=== PATIENT | female | born 1990 | race Caucasian/White ===

== ENCOUNTER → 2017-05-16 | Outpatient (CLI) | payer OTHER | END | disposition home or self-care (01) | LOC: LABWHC1 16:58 | PROVIDERS: ATTEND Family Medicine | DX: E66.3 Overweight (principal) | CPT/HCPCS: 36415; 84443 ==

== ENCOUNTER → 2017-12-12 | Outpatient (CLI) | payer OTHER ==
[2017-12-12 16:09] LABS: HCT 38.7 % (34.0-46.0); HGB 12.6 gm/dL (11.4-16.0); MCH 30.7 pg (25.0-35.0); MCHC 32.5 g/dL (31.0-37.0); MCV 94.5 fL (80.0-100.0); Mean Platelet Volume 7.9; Platelet Count 236 k/uL (150-450); RBC 4.09 m/uL (3.80-5.40); RDW 13.7 % (11.5-15.5); WBC 10.2 k/uL (3.8-10.6)
== END | disposition home or self-care (01) ==
LOC: LABWHC1 14:28
PROVIDERS: ATTEND Obstetrics & Gynecology
DX: Z34.82 Encounter for supervision of other normal pregnancy, second trimester (principal); Z3A.00 Weeks of gestation of pregnancy not specified
CPT/HCPCS: 36415; 82950; 85027

== ENCOUNTER → 2017-12-19 | Outpatient (CLI) | payer OTHER ==
[2017-12-19 12:50] LABS: Glucose 3 Hour, Gest 75 mg/dL
== END | disposition home or self-care (01) ==
LOC: LABWHC1 08:09
PROVIDERS: ATTEND Obstetrics & Gynecology
DX: O99.810 Abnormal glucose complicating pregnancy (principal); Z3A.00 Weeks of gestation of pregnancy not specified
CPT/HCPCS: 36415; 82951; 82952

== ENCOUNTER 2018-03-15 20:06 | Outpatient (CLI) | payer OTHER ==
[2018-03-15 21:30] VITALS: BP 131/80; PULSE 105; RESP 18; TEMP 97.2
--- NOTE | 2018-03-16 11:38 | P.MSEPDOC ---
Presenting Problems - Arrival Data Date of Arrival on Unit: 03/15/18 Time of Arrival on Unit: 20:06 Mode of Transport: Ambulatory - Complaint OB-Reason for Admission/Chief Complaint: Pain Comment: back pain and heachache Medical History - Information : 2 Para: 0 Term: 0 : 0 Abortions: Spontaneous or Elective: 0 Number of Living Children: 0 - Gestational Age Gestational Age by AURELIO (wks/days): 38 Weeks and 6 Days - History Complications: GBS+ Review of Systems - Review of Systems Constitutional: No problems Breast: No problems ENT: No problems Cardiovascular: No problems Respiratory: No problems Gastrointestinal: No problems Genitourinary: No problems Musculoskeletal: No problems Neurological: No problems Skin: No problems Vital Signs - Temperature Temperature: 97.2 F Temperature Source: Temporal Artery Scan - Pulse Right Brachial Pulse Rate: 105 Pulse Assessment Method: Automatic Cuff - Respirations Respiratory Rate: 18 Oxygen Delivery Method: Room Air - Blood Pressure Right Arm Blood Pressure: 131/80 Blood Pressure Mean: 97 Blood Pressure Source: Automatic Cuff Medical Screen Scoring (Pre) - Cervical Exam Dilation: 1-3 cm = 1 Membranes: Intact - Uterine Contractions Frequency: > 5 minutes apart = 1 Duration: N/A Intensity: N/A - Maternal Vital Signs Maternal Temperature: N/A Maternal Blood Pressure: N/A Signs of Preeclampsia: N/A Maternal Respirations: N/A - Pain Assessment Pain Location and Character: Back Pain Scale Used: Numeric (1 - 10) Pain Intensity: 8 Pain Description: *Acute Pain Radiation Location: none Pain Duration: 1 Pain Duration Units: Days Pain Behavior: Vocalization Pain Aggravating Factors: Walking - Maternal Trauma Maternal Trauma: N/A - Assessment Baseline FHR: 150 Heart Rate - NICHD Category: Category I (Normal) = 0 NST: Reactive Position: N/A - Total Score Total Score (Pre): 2 - Level of Risk Level of Risk: Low (0-5) Physician Notification (Pre) - Physician Notified Physician Notified Date: 03/15/18 Physician Notified Time: 20:47 Physician/Practitioner Notifed:: Dr. Banerjee Spoke With: Dr. Banerjee New Order Received: Yes Disposition - Disposition OB Disposition: Triage, Discharge to home, Written follow up instructions reviewed Discharge Date: 03/15/18 Discharge Time: 21:00 I agree with the RN Medical Screening Exam: Yes Risk & Benefit of care provided described in d/c instruction: Yes Diagnosis: HEADACHE
== END 2018-03-15 21:00 | disposition home or self-care (01) ==
LOC: FBPOP 20:06
PROVIDERS: ATTEND Obstetrics & Gynecology
DX: O26.893 Other specified pregnancy related conditions, third trimester (principal); R51 Headache; M54.9 Dorsalgia, unspecified; Z3A.38 38 weeks gestation of pregnancy
CPT/HCPCS: 59025; 99213

== ENCOUNTER 2018-03-23 14:06 | Inpatient (IN) | payer OTHER ==
[2018-04-02] MEDS ORDERED: TERBUTALINE 1 MG/ML VIAL SQ PRN (06:30)
[2018-04-02] MEDS ORDERED: CARBOPROST TROMETHAMINE 250 MCG/ML 1 ML AMP IM PRN (06:30)
[2018-04-02] MEDS ORDERED: LIDOCAINE 1% (PF) 10 MG/ML (30 ML SDV) SQ PRN (06:30)
[2018-04-02] MEDS ORDERED: OXYTOCIN 10 UNIT/ML 1 ML VIAL IM PRN (06:30)
[2018-04-02] MEDS ORDERED: AMPICILLIN 2,000 MG in SODIUM CHLORIDE 0.9% 100 ML IVPB STA (06:30)
[2018-04-02] MEDS ORDERED: OXYTOCIN 20 UNITS/1000 ML NS 1,000 ML IV SCH ×2 (06:30→21:15)
[2018-04-02] MEDS ORDERED: METHYLERGONOVINE 0.2 MG/ML 1 ML AMP IM PRN (06:30)
[2018-04-02 06:40] LABS: Basophils % (A) 0 %; Eosinophils # (A) 0.3 k/uL (0-0.7); Eosinophils % (A) 3 %; HCT 41.6 % (34.0-46.0); HGB 14.2 gm/dL (11.4-16.0); Lymphocytes # (A) 1.5 k/uL (1.0-4.8); Lymphocytes % (A) 18 %; MCHC 34.1 g/dL (31.0-37.0); MCV 88.1 fL (80.0-100.0); Mean Platelet Volume 8.8; Monocytes # (A) 0.4 k/uL (0-1.0); Monocytes % (A) 4 %; Neutrophils # (A) 6.4 k/uL (1.3-7.7); Neutrophils % (A) 73 %; Platelet Count 191 k/uL (150-450); RBC 4.72 m/uL (3.80-5.40); RDW 14.2 % (11.5-15.5); WBC 8.7 k/uL (3.8-10.6)
[2018-04-02] MEDS: LACTATED RINGERS 1,000 ML IV SCH ×3 (06:40→14:43)
[2018-04-02 07:29] VITALS: BMI 39.1
--- NOTE | 2018-04-02 08:13 | P.HPOB ---
History of Present Illness H&P Date: 04/02/18 Chief Complaint: Induction of Labor 28-year-old presents at 41 weeks and 3 days for induction of labor. Her cervix is 2-3 cm dilated, 60% effaced, and -2 station. She is not charline. heart tones 130-135 with moderate variability and reactive. Review of Systems All systems: negative Constitutional: Denies chills, Denies fever Eyes: denies blurred vision, denies pain Ears, nose, mouth and throat: Denies headache, Denies sore throat Cardiovascular: Denies chest pain, Denies shortness of breath Respiratory: Denies cough Gastrointestinal: Denies abdominal pain, Denies diarrhea, Denies nausea, Denies vomiting Genitourinary: Denies dysuria, Denies hematuria Musculoskeletal: Denies myalgias Integumentary: Denies pruritus, Denies rash Neurological: Denies numbness, Denies weakness Psychiatric: Denies anxiety, Denies depression Endocrine: Denies fatigue, Denies weight change Past Medical History Additional Past Medical History / Comment(s): mitrovalve regurgitation. Obstetric history: First was elective , this is her second and she's had care with me since 14 weeks. Blood type is B+ , antibodies negative, rubella immune, RPR nonreactive, hepatitis B negative, HIV nonreactive, toxoplasmosis negative. Abnormal one-hour, normal three-hour GTT. Normal anatomy ultrasound, the baby did have an echogenic intracardiac focus but when she went [facility] that was gone. GBS positive History of Any Multi-Drug Resistant Organisms: None Reported Additional Past Surgical History / Comment(s): defibrilator insertion and removal, during highschool Past Anesthesia/Blood Transfusion Reactions: No Reported Reaction Past Psychological History: No Psychological Hx Reported Smoking Status: Never smoker Past Drug Use History: None Reported - Past Family History Father Family Medical History: No Reported History Medications and Allergies Home Medications Medication Instructions Recorded Confirmed Type Pnv No.95/Ferrous Fum/Folic AC 1 each PO DAILY 03/15/18 04/02/18 History [ Multivitamin Tablet] Allergies Allergy/AdvReac Type Severity Reaction Status Date / Time adhesive tape Allergy Rash/Hives Verified 04/02/18 06:29 fluticasone [From Flonase] Allergy Swelling Verified 04/02/18 06:29 Latex, Natural Rubber Allergy Swelling Verified 04/02/18 06:29 Exam Osteopathic Statement: *. No significant issues noted on an osteopathic structural exam other than those noted in the History and Physical/Consult. - Vital Signs Vital signs: Vital Signs Temp Pulse Resp BP Pulse Ox 04/02/18 06:29 96.9 F L 89 16 101/67 99 Intake and Output 04/01/18 04/02/18 04/02/18 22:59 06:59 14:59 Other: Weight 97.069 kg Heart: Regular rate and rhythm Lungs: Clear to auscultation bilaterally Abdomen: Soft, nontender Extremities: Negative Homans sign Results Result Diagrams: 04/02/18 06:33 Assessment and Plan (1) Normal labor Current Visit: Yes Status: Acute Code(s): O80 - ENCOUNTER FOR FULL-TERM UNCOMPLICATED DELIVERY; Z37.9 - OUTCOME OF DELIVERY, UNSPECIFIED SNOMED Code(s ): 56710999 Plan: 1. Admit to family place 2. Induction of labor with amniotomy and Pitocin 3. Anticipate normal vaginal delivery
[2018-04-02] MEDS: AMPICILLIN 1,000 MG in SODIUM CHLORIDE 0.9% 50 ML IVPB SCH ×3 (11:23→19:42)
[2018-04-02] MEDS ORDERED: fentaNYL (PF) 50 MCG/ML 5 ML AMP ONE (14:10)
[2018-04-02] MEDS ORDERED: BUPIVACAINE (PF) 0.25% 30 ML VIAL ONE (14:10)
[2018-04-02] MEDS ORDERED: SODIUM CHLORIDE 0.9% 100 ML BAG ONE (14:10)
[2018-04-02] MEDS ORDERED: NALOXONE 0.4 MG/ML 1 ML VIAL IV PRN (14:59)
[2018-04-02] MEDS ORDERED: ROPIVACAINE 300 MG, fentaNYL (PF) 1,250 MCG in SODIUM CHLORIDE 0.9% 165 ML EPIDURAL PRN (14:59)
[2018-04-02] MEDS ORDERED: BUPIVACAINE (PF) 0.5% 12.5 ML, fentaNYL (PF) 200 MCG in SODIUM CHLORIDE 0.9% 83.5 ML EPIDURAL ONE (15:11)
[2018-04-02] MEDS ORDERED: ROPIVACAINE 100 MG, fentaNYL (PF) 200 MCG in SODIUM CHLORIDE 0.9% 76 ML EPIDURAL ONE (15:22)
[2018-04-02] MEDS ORDERED: BENZOCAINE/MENTHOL SPRAY 1 GM/SPRAY AEROSOL TOPICAL PRN (21:11)
[2018-04-02] MEDS ORDERED: ZOLPIDEM 5 MG TAB PO PRN (21:11)
[2018-04-02] MEDS ORDERED: WITCH HAZEL 1 EACH MED..PAD TOPICAL PRN (21:11)
[2018-04-02] MEDS ORDERED: ACETAMINOPHEN TAB 325 MG TAB PO PRN (21:11)
[2018-04-02] MEDS ORDERED: diphenhydrAMINE 25 MG CAP PO PRN (21:11)
[2018-04-02] MEDS ORDERED: LANOLIN CREAM 5 GM TUBE TOPICAL PRN (21:11)
[2018-04-02] MEDS ORDERED: diphenhydrAMINE 50 MG CAP PO PRN (21:11)
[2018-04-02] MEDS ORDERED: diphenhydrAMINE 50 MG/ML 1 ML VIAL IVP PRN ×2 (21:11)
[2018-04-02] MEDS ORDERED: SIMETHICONE 80 MG CHEWABLE PO PRN (21:11)
[2018-04-02] MEDS ORDERED: IBUPROFEN 600 MG TAB PO PRN (21:11)
--- NOTE | 2018-04-02 21:15 | P.PROBDLV ---
Vaginal Delivery Note - . Vaginal Delivery Note: 28-year-old presents at 41 weeks and 3 days for induction of labor. Her cervix is 2-3 cm dilated, 70% effaced, -2 station. She's not charline. heart tones 130-135 with moderate variability and reactive. Pitocin was started. Amniotomy was performed at 7:49 AM and clear fluid noted. She progressed slowly throughout the day and when she was very uncomfortable at 4-1/ 2 cm she did get an epidural. Her cervix was completely dilated at 1945. She pushed, and delivered a viable male over intact perineum under epidural anesthesia at 2053. Head delivered OA, anterior shoulder which was the left shoulder delivered gentle downward guidance followed by posterior shoulder and rest of body. Nose and mouth bulb suctioned, cord clamped and cut, infant placed on mother's abdomen. Apgars 8, 9, weight 6 lbs. 13 oz. Placenta delivered spontaneously, intact with three-vessel cord at 2057. Vagina, cervix , and perineum were inspected. First-degree midline laceration was repaired with 3-0 Vicryl. Estimated blood loss 200 mL. Mother and baby in stable condition.
[2018-04-03 16:40] VITALS: BP 117/76; PULSE 95; RESP 18; TEMP 98.4
[2018-04-03] MEDS: SENNOSIDES-DOCUSATE SODIUM 1 EACH TAB PO SCH ×2 (20:38→22:12)
--- NOTE | 2018-04-09 07:36 | P.DS ---
Providers Date of admission: 04/02/18 06:23 Expected date of discharge: 04/03/18 Attending physician: Samantha Banerjee Primary care physician: Celso Posey - Discharge Diagnosis(es) (1) Normal labor Status: Resolved (2) Normal vaginal delivery Status: Acute Hospital Course: Patient presented for induction of labor. She underwent a normal vaginal delivery. Her course was uncomplicated. She'll be discharged home day #1 in stable condition to follow-up with me in 6 weeks. Patient Condition at Discharge: Stable Plan - Discharge Summary New Discharge Prescriptions: No Action Pnv No.95/Ferrous Fum/Folic AC [ Multivitamin Tablet] 1 each PO DAILY Discharge Medication List Pnv No.95/Ferrous Fum/Folic AC [ Multivitamin Tablet] 1 each PO DAILY [History] Follow up Appointment(s)/Referral(s): Samantha Banerjee DO [Doctor of Osteopathic Medicine] - 6 Weeks Discharge Disposition: HOME SELF-CARE
== END 2018-04-03 21:50 | disposition home or self-care (01) | DRG 775 ==
LOC: 4FBP 04-02 06:23
PROVIDERS: ADMIT Obstetrics & Gynecology; ATTEND Obstetrics & Gynecology
PROC: 00HU33Z Insertion of Infusion Device into Spinal Canal, Percutaneous Approach (ICD-10-PCS; principal; 2018-04-02)
PROC: 10907ZC Drainage of Amniotic Fluid, Therapeutic from Products of Conception, Via Natural or Artificial Opening (ICD-10-PCS; principal; 2018-04-02)
PROC: 3E0R3NZ Introduction of Analgesics, Hypnotics, Sedatives into Spinal Canal, Percutaneous Approach (ICD-10-PCS; principal; 2018-04-02)
PROC: 0HQ9XZZ Repair Perineum Skin, External Approach (ICD-10-PCS; principal; 2018-04-02)
PROC: 10E0XZZ Delivery of Products of Conception, External Approach (ICD-10-PCS; principal; 2018-04-02)
DX: O48.0 Post-term pregnancy (principal); Z37.0 Single live birth; O99.824 Streptococcus B carrier state complicating childbirth; O70.0 First degree perineal laceration during delivery; Z3A.41 41 weeks gestation of pregnancy; Z88.8 Allergy status to other drugs, medicaments and biological substances; Z91.040 Latex allergy status
CPT/HCPCS: 85025; 88307

== ENCOUNTER 2018-10-06 17:28 | Emergency (ER) | payer OTHER ==
[2018-10-06 17:58] VITALS: BP 135/87; PULSE 120; RESP 18; TEMP 98.3
[2018-10-06] MEDS ORDERED: LIDOCAINE 1% INJ 10MG/ML (20 ML MDV) SQ ONE (19:22)
--- NOTE | 2018-10-06 19:23 | ED ---
Wound/Laceration HPI - General Chief Complaint: Wound/Laceration Stated Complaint: hand lac Source: patient Mode of arrival: ambulatory Limitations: no limitations - History of Present Illness Initial Comments: 28 year old female with no significant past medical history presenting today for chief complaint of left hand laceration x 30 minutes prior to arrival. Patient is 5 weeks . Patient states that she was cutting a squash when she missed the knife cut into the palmar aspect of her left hand. It cut just proximal to the base the left index finger. Patient is unsure how deep the knife went. Patient states her tetanus up-to-date. Patient presents today for evaluation and laceration repair. Patient denies any numbness, tingling, loss sensation, coolness or pallor of the extremity or digit. Patient denies any limitations in range of motion of the left index finger. Upon arrival patient is well-appearing, no active bleeding. Patient states she not take any medication prior to arrival. Patient did cleanse area, and apply pressure prior to arrival. Remainder of ROS negative, patient denies any recent fever, chills, shortness of breath, chest pain, back pain, abdominal pain, nausea or vomiting, numbness or tingling, dysuria or hematuria, constipation or diarrhea, headaches or visual changes, or any other complaints. - Related Data Home Medications Medication Instructions Recorded Confirmed Pnv No.95/Ferrous Fum/Folic AC 1 each PO DAILY 18 04/02/18 [ Multivitamin Tablet] Allergies Allergy/AdvReac Type Severity Reaction Status Date / Time adhesive tape Allergy Rash/Hives Verified 10/06/18 17:55 fluticasone [From Flonase] Allergy Swelling Verified 10/06/18 17:55 Latex, Natural Rubber Allergy Swelling Verified 10/06/18 17:55 Review of Systems ROS Statement: Those systems with pertinent positive or pertinent negative responses have been documented in the HPI. ROS Other: All systems not noted in ROS Statement are negative. Constitutional: Denies: fever, chills ENT: Denies: ear pain, throat pain Respiratory: Denies: cough, dyspnea, wheezes, hemoptysis Cardiovascular: Denies: chest pain, palpitations Endocrine: Denies: fatigue Gastrointestinal: Denies: abdominal pain, vomiting, diarrhea, constipation Genitourinary: Denies: urgency, dysuria Musculoskeletal: Denies: back pain Skin: Denies: rash, lesions Past Medical History Additional Past Medical History / Comment(s): mitrovalve regurgitation. Obstetric history: First was elective , this is her second and she's had care with me since 14 weeks. Blood type is B+ , antibodies negative, rubella immune, RPR nonreactive, hepatitis B negative, HIV nonreactive, toxoplasmosis negative. Abnormal one-hour, normal three-hour GTT. Normal anatomy ultrasound, the baby did have an echogenic intracardiac focus but when she went [facility] that was gone. GBS positive History of Any Multi-Drug Resistant Organisms: None Reported Additional Past Surgical History / Comment(s): defibrilator insertion and removal, during highschool Past Anesthesia/Blood Transfusion Reactions: No Reported Reaction Past Psychological History: No Psychological Hx Reported Smoking Status: Never smoker Past Alcohol Use History: None Reported Past Drug Use History: None Reported - Past Family History Father Family Medical History: No Reported History General Exam - General Exam Comments Initial Comments: General: The patient is awake and alert, in no distress, and does not appear acutely ill. Eye: Pupils are equal, round and reactive to light, extra-ocular movements are intact. No nystagmus. There is normal conjunctiva bilaterally. No signs of icterus. Ears, nose, mouth and throat: There are moist mucous membranes and no oral lesions. Neck: The neck is supple, there is no tenderness or JVD. Cardiovascular: There is a regular rate and rhythm. No murmur, rub or gallop is appreciated. Respiratory: Lungs are clear to auscultation, respirations are non-labored, breath sounds are equal. No wheezes, stridor, rales, or rhonchi. Musculoskeletal: Normal ROM at the MCP, PIP and DIP joints these were tested and isolated for testing individually, of the left hand. No noted deficits, no tenderness. Strength 5/5 at the MCP, PIP and DIP joints of the left hand equal comparison with the right. Sensation intact. Radial Pulses equal bilaterally 2+ . Capillary refill less than 2 seconds. She is able to give thumbs up, fingers crossed okay and extend the left and right wrist. Ulnar median and radial nerves intact. Compartments soft and compressible. Neurological: A&O x 3. CN II-XII intact, There are no obvious motor or sensory deficits. Coordination appears grossly intact. Speech is normal. Skin: Skin is warm and dry and no rashes or lesions are noted. There is a 2 similar laceration linear along the palmar surface of the left hand. The base of the MCP joint of the second digit. It does not appear to involve tendon, no exposure of underlying structures. No active bleeding at this time. Psychiatric: Cooperative, appropriate mood & affect, normal judgment. Limitations: no limitations Course Vital Signs 10/06/18 17:55 Temperature 98.3 F Pulse Rate 120 H Respiratory 18 Rate Blood Pressure 135/87 O2 Sat by Pulse 100 Oximetry Procedures - Laceration Laceration #1 Consent Obtained: verbal consent Time Out Performed: Yes Indication: laceration Site: hand Size (cm): 2 Description: linear Depth: simple, single layer Anesthetic Used: lidocaine 1% Anesthesia Technique: local infiltration Amount (mls): 5 Pre-repair: wound explored, irrigated extensively, deep structures intact Type of Sutures: nylon Size of Sutures: 5-0 Number of Sutures: 5 Technique: simple, interrupted Patient Tolerated Procedure: well, no complications Additional Comments: No obvious tendon injury, pt placedi n splint and given orthopedic surgery consultation if experiences any difficulty with ROM or strength of index finger Medical Decision Making - Medical Decision Making PE revealed a 2 cm linear laceration to the palmar aspect of the left hand, just proximal to the MCP joint of the second digit. Laceration repaired using 5 , 5. 0 nylon sutures. There is no evidence of tendon injury on examination. Wound was irrigated extensively, sterile procedure used to repair. Patient tolerate procedure well. Given the location of injury, patient was given an orthopedic surgery referral for further evaluation if she expresses any limitations in range of motion or strength of the digit left hand. Patient was educated on signs and symptoms of infection and instructed to return immediately if these develop. Bacitracin sterile bandage, and finger splint applied to repaired laceration. Case discussed with Dr. Amezcua who agrees impression and plan. Patient tetanus is up-to-date. Patient discharged in stable condition with follow-up in the next 7-10 days for suture removal. As well as follow up with primary care provider in next 1-2 days for wound check. Patient verbalized understanding of plan, chest crutches at this time. She discharged in stable condition Disposition Clinical Impression: Laceration of left hand Disposition: HOME SELF-CARE Condition: Good Instructions: Care For Your Stitches (ED), Laceration (ED) Additional Instructions: Please use medication as discussed. Please follow-up with family doctor in the next 2 days, and orthopedic surgery in the next 2-3 days. Please return for suture removal in the next 7-10 days. Please return to emergency room if the symptoms increase or worsen or for any other concerns. Is patient prescribed a controlled substance at d/c from ED?: No Referrals: Celso Posey MD [Primary Care Provider] - 1-2 days Rodolfo Torres MD [STAFF PHYSICIAN] - 1-2 days Time of Disposition: 20:27
== END 2018-10-06 20:38 | disposition home or self-care (01) ==
LOC: EC 17:28
DX: O9A.211 Injury, poisoning and certain other consequences of external causes complicating pregnancy, first trimester (principal); S61.412A Laceration without foreign body of left hand, initial encounter; Z88.8 Allergy status to other drugs, medicaments and biological substances; Z91.040 Latex allergy status; Z91.048 Other nonmedicinal substance allergy status; Z3A.01 Less than 8 weeks gestation of pregnancy; W26.0XXA Contact with knife, initial encounter; Y93.G1 Activity, food preparation and clean up; Y92.009 Unspecified place in unspecified non-institutional (private) residence as the place of occurrence of the external cause
CPT/HCPCS: 99282; 12001; J2001

== ENCOUNTER 2018-10-30 23:14 | Emergency (ER) | payer OTHER ==
[2018-10-30 23:24] VITALS: TEMP 98
--- NOTE | 2018-10-31 00:29 | ED ---
Female Urogenital HPI - General Source: patient, RN notes reviewed, old records reviewed Mode of arrival: ambulatory Limitations: no limitations <Anila Cunningham - Last Filed: 11/01/18 00:19> <Alina Veras - Last Filed: 11/02/18 02:17> - General Chief complaint: Vaginal Bleeding Stated complaint: ,bleeding Time Seen by Provider: 10/30/18 23:28 - History of Present Illness Initial comments: Patient is a G3,P1 female currently 8 weeks . She presents with concern of minimal vaginal bleeding when wiping. She denies abdominal pain or cramping. She follows with Dr. Mcfarland. She has had no US or testing up to this point, she sees OB next week. She was concerned with bleeding that she needed to ease her worries of miscarriage. (Anila Cunningham) - Related Data Home Medications Medication Instructions Recorded Confirmed Pnv No.95/Ferrous Fum/Folic AC 1 each PO DAILY 03/15/18 04/02/18 [ Multivitamin Tablet] Allergies Allergy/AdvReac Type Severity Reaction Status Date / Time adhesive tape Allergy Rash/Hives Verified 10/30/18 23:25 egg Allergy Anaphylaxis Verified 10/30/18 23:25 fluticasone [From Flonase] Allergy Swelling Verified 10/30/18 23:25 Latex, Natural Rubber Allergy Swelling Verified 10/30/18 23:25 Review of Systems ROS Other: All systems not noted in ROS Statement are negative. <Anila Cunningham - Last Filed: 11/01/18 00:19> ROS Other: All systems not noted in ROS Statement are negative. <Alina Veras - Last Filed: 11/02/18 02:17> ROS Statement: Those systems with pertinent positive or pertinent negative responses have been documented in the HPI. Past Medical History Additional Past Medical History / Comment(s): mitrovalve regurgitation. Obstetric history: First was elective , this is her second and she's had care with me since 14 weeks. Blood type is B+ , antibodies negative, rubella immune, RPR nonreactive, hepatitis B negative, HIV nonreactive, toxoplasmosis negative. Abnormal one-hour, normal three-hour GTT. Normal anatomy ultrasound, the baby did have an echogenic intracardiac focus but when she went MFM that was gone. GBS positive History of Any Multi-Drug Resistant Organisms: None Reported Additional Past Surgical History / Comment(s): defibrilator insertion and removal, during highschool Past Anesthesia/Blood Transfusion Reactions: No Reported Reaction Past Psychological History: No Psychological Hx Reported Smoking Status: Never smoker Past Alcohol Use History: None Reported Past Drug Use History: None Reported - Past Family History Father Family Medical History: No Reported History <Anila Cunningham - Last Filed: 11/01/18 00:19> General Exam Limitations: no limitations General appearance: alert, in no apparent distress Head exam: Present: atraumatic, normocephalic, normal inspection Eye exam: Present: normal appearance, PERRL, EOMI. Absent: scleral icterus, conjunctival injection, periorbital swelling ENT exam: Present: normal exam, mucous membranes moist Neck exam: Present: normal inspection. Absent: tenderness, meningismus, lymphadenopathy Respiratory exam: Present: normal lung sounds bilaterally. Absent: respiratory distress, wheezes, rales, rhonchi, stridor Cardiovascular Exam: Present: regular rate, normal rhythm, normal heart sounds. Absent: systolic murmur, diastolic murmur, rubs, gallop, clicks GI/Abdominal exam: Present: soft, normal bowel sounds. Absent: distended, tenderness, guarding, rebound, rigid External exam: Present: other (Patient refused exam due to history of severe pain with pelvic exam. ) Extremities exam: Present: normal inspection, full ROM, normal capillary refill. Absent: tenderness, pedal edema, joint swelling, calf tenderness Back exam: Present: normal inspection Neurological exam: Present: alert, oriented X3, CN II-XII intact <Anila Cunningham - Last Filed: 11/01/18 00:19> <Alina Veras - Last Filed: 11/02/18 02:17> - General Exam Comments Initial Comments: This is a well appearing 28 year old female, no distress. (Anila Cunningham) Vital Signs 10/30/18 10/31/18 23:22 01:52 Temperature 98 F 98 F Pulse Rate 104 H 80 Respiratory 20 18 Rate Blood Pressure 141/91 106/70 O2 Sat by Pulse 99 96 Oximetry Medical Decision Making - Lab Data Result diagrams: 10/31/18 00:57 10/31/18 00:57 - Radiology Data Radiology results: report reviewed <Anila Cunningham - Last Filed: 11/01/18 00:19> - Lab Data Result diagrams: 10/31/18 00:57 10/31/18 00:57 <Alina Veras - Last Filed: 11/02/18 02:17> - Medical Decision Making 28 year old female, , presents with concern of vaginal bleeding. Patient is 8 weeks based on LMP. US today shows viable IUP. Patient blood type is B positive, so no need for Rhogam. Patient refused pelvic exam. Discussed that patient can have HCG levels rechecked, unavailable at time of Disposition. Discussed she can have these rechecked if further bleeding and she has appt with OB next week. Discussed strict return parameters. (Anila Cunningham) I was available for consultation in the emergency department. The history and physical exam were done by the midlevel provider. I was consulted for this patient's care. I reviewed the case with the midlevel provider and based on their presentation of the patient, I agree with the assessment, medical decision making and plan of care as documented. (Alina Veras) - Lab Data Lab Results 10/31/18 10/31/18 10/31/18 Range/Units 00:57 00:57 00:57 WBC 9.7 (3.8-10.6) k/uL RBC 4.98 (3.80-5.40) m/uL Hgb 14.5 (11.4-16.0) gm/dL Hct 44.2 (34.0-46.0) % MCV 88.8 (80.0-100.0) fL MCH 29.2 (25.0-35.0) pg MCHC 32.9 (31.0-37.0) g/dL RDW 14.3 (11.5-15.5) % Plt Count 240 (150-450) k/uL Neutrophils % 77 % Lymphocytes % 14 % Monocytes % 4 % Eosinophils % 3 % Basophils % 0 % Neutrophils # 7.5 (1.3-7.7) k/uL Lymphocytes # 1.4 (1.0-4.8) k/uL Monocytes # 0.4 (0-1.0) k/uL Eosinophils # 0.3 (0-0.7) k/uL Basophils # 0.0 (0-0.2) k/uL Sodium 137 (137-145) mmol/L Potassium 4.2 (3.5-5.1) mmol/L Chloride 104 (98-107) mmol/L Carbon Dioxide 21 L (22-30) mmol/L Anion Gap 12 mmol/L BUN 10 (7-17) mg/dL Creatinine 0.58 (0.52-1.04) mg/dL Est GFR (CKD-EPI)AfAm >90 (>60 ml/min/1.73 sqM) Est GFR (CKD-EPI)NonAf >90 (>60 ml/min/1.73 sqM) Glucose 109 H (74-99) mg/dL Calcium 9.9 (8.4-10.2) mg/dL HCG, Quant mIU/mL Urine Color Urine Appearance (Clear) Urine pH (5.0-8.0) Ur Specific Slemp (1.001-1.035) Urine Protein (Negative) Urine Glucose (UA) (Negative) Urine Ketones (Negative) Urine Blood (Negative) Urine Nitrite (Negative) Urine Bilirubin (Negative) Urine Urobilinogen (<2.0) mg/dL Ur Leukocyte Esterase (Negative) Urine HCG, Qual (Not Detectd) Blood Type B Positive Blood Type Confirm Blood Type Recheck CABO Indicated 10/31/18 10/31/18 10/31/18 Range/Units 00:58 01:20 01:20 WBC (3.8-10.6) k/uL RBC (3.80-5.40) m/uL Hgb (11.4-16.0) gm/dL Hct (34.0-46.0) % MCV (80.0-100.0) fL MCH (25.0-35.0) pg MCHC (31.0-37.0) g/dL RDW (11.5-15.5) % Plt Count (150-450) k/uL Neutrophils % % Lymphocytes % % Monocytes % % Eosinophils % % Basophils % % Neutrophils # (1.3-7.7) k/uL Lymphocytes # (1.0-4.8) k/uL Monocytes # (0-1.0) k/uL Eosinophils # (0-0.7) k/uL Basophils # (0-0.2) k/uL Sodium (137-145) mmol/L Potassium (3.5-5.1) mmol/L Chloride (98-107) mmol/L Carbon Dioxide (22-30) mmol/L Anion Gap mmol/L BUN (7-17) mg/dL Creatinine (0.52-1.04) mg/dL Est GFR (CKD-EPI)AfAm (>60 ml/min/1.73 sqM) Est GFR (CKD-EPI)NonAf (>60 ml/min/1.73 sqM) Glucose (74-99) mg/dL Calcium (8.4-10.2) mg/dL HCG, Quant 291067.0 mIU/mL Urine Color Yellow Urine Appearance Clear (Clear) Urine pH 6.0 (5.0-8.0) Ur Specific Slemp 1.012 (1.001-1.035) Urine Protein Negative (Negative) Urine Glucose (UA) Negative (Negative) Urine Ketones 1+ H (Negative) Urine Blood Negative (Negative) Urine Nitrite Negative (Negative) Urine Bilirubin Negative (Negative) Urine Urobilinogen <2.0 (<2.0) mg/dL Ur Leukocyte Esterase Negative (Negative) Urine HCG, Qual Detected (Not Detectd) Blood Type Blood Type Confirm Blood Type Recheck 10/31/18 Range/Units 01:39 WBC (3.8-10.6) k/uL RBC (3.80-5.40) m/uL Hgb (11.4-16.0) gm/dL Hct (34.0-46.0) % MCV (80.0-100.0) fL MCH (25.0-35.0) pg MCHC (31.0-37.0) g/dL RDW (11.5-15.5) % Plt Count (150-450) k/uL Neutrophils % % Lymphocytes % % Monocytes % % Eosinophils % % Basophils % % Neutrophils # (1.3-7.7) k/uL Lymphocytes # (1.0-4.8) k/uL Monocytes # (0-1.0) k/uL Eosinophils # (0-0.7) k/uL Basophils # (0-0.2) k/uL Sodium (137-145) mmol/L Potassium (3.5-5.1) mmol/L Chloride (98-107) mmol/L Carbon Dioxide (22-30) mmol/L Anion Gap mmol/L BUN (7-17) mg/dL Creatinine (0.52-1.04) mg/dL Est GFR (CKD-EPI)AfAm (>60 ml/min/1.73 sqM) Est GFR (CKD-EPI)NonAf (>60 ml/min/1.73 sqM) Glucose (74-99) mg/dL Calcium (8.4-10.2) mg/dL HCG, Quant mIU/mL Urine Color Urine Appearance (Clear) Urine pH (5.0-8.0) Ur Specific Slemp (1.001-1.035) Urine Protein (Negative) Urine Glucose (UA) (Negative) Urine Ketones (Negative) Urine Blood (Negative) Urine Nitrite (Negative) Urine Bilirubin (Negative) Urine Urobilinogen (<2.0) mg/dL Ur Leukocyte Esterase (Negative) Urine HCG, Qual (Not Detectd) Blood Type Blood Type Confirm B Positive Blood Type Recheck - Radiology Data Viable IUP of 7 weeks and 6 days. HR 165 bpm. (Anila Cunningham) Disposition Is patient prescribed a controlled substance at d/c from ED?: No Time of Disposition: 01:46 <Anila Cunningham - Last Filed: 11/01/18 00:19> <Alina Veras - Last Filed: 11/02/18 02:17> Clinical Impression: Bleeding in early Disposition: HOME SELF-CARE Condition: Good Instructions: Threatened Miscarriage (ED) Additional Instructions: Patient advised to repeat hCG level in 48 hours. Follow-up with Dr. Mcfarland. Return to emergency department if any alarming signs or symptoms occur. Referrals: Celso Posey MD [Primary Care Provider] - 1-2 days Samantha Mcfarland DO [Doctor of Osteopathic Medicine] - 1-2 days
--- NOTE | 2018-10-31 01:00 | US ---
EXAMINATION TYPE: Transabdominal DATE OF EXAM: 01/28/18 COMPARISON: NONE CLINICAL HISTORY: Pain. Spotting EXAM PERFORMED: Transabdominal (TA) EXAM MEASUREMENTS: GESTATIONAL AGE / DATING Physician Established: ( 8 weeks/1 days) EDC: 06/11/2019 Dates by LMP: (8 weeks/1 days) EDC: 06/11/2019 Dates by First Scan: No previous this is first scan Dates by Current Scan for: (7 weeks/6 days) EDC: 06/13/2019 MATERNAL ANATOMY Uterus: 12.0 x 6.1 x 7.2 cm Right Ovary: 3.7 x 3.0 x 4.3cm Post CDS / Adnexa: wnl Presence of free fluid: no Presence of corpus luteal cyst: yes right ovary Presence of subchorionic bleed: no GESTATION / SURVEY CRL: 1.5 cm (7 weeks/6 days) Yolk Sac (normal less than 6mm): 4mm Heart Rate: 165 bpm Rhythm: Normal IUP: Viable IUP Beta HcG (if available): Not available at this time Viable IUP 7w6d AURELIO 06/13/2019 HR 165 BPM IMPRESSION: No complicating process seen.
[2018-10-31 01:10] LABS: Basophils % (A) 0 %; Eosinophils # (A) 0.3 k/uL (0-0.7); Eosinophils % (A) 3 %; HCT 44.2 % (34.0-46.0); HGB 14.5 gm/dL (11.4-16.0); Lymphocytes # (A) 1.4 k/uL (1.0-4.8); Lymphocytes % (A) 14 %; MCH 29.2 pg (25.0-35.0); MCHC 32.9 g/dL (31.0-37.0); MCV 88.8 fL (80.0-100.0); Mean Platelet Volume 6.9; Monocytes # (A) 0.4 k/uL (0-1.0); Monocytes % (A) 4 %; Neutrophils # (A) 7.5 k/uL (1.3-7.7); Neutrophils % (A) 77 %; Platelet Count 240 k/uL (150-450); RBC 4.98 m/uL (3.80-5.40); RDW 14.3 % (11.5-15.5); WBC 9.7 k/uL (3.8-10.6)
[2018-10-31 01:19] LABS: Anion Gap 12 mmol/L; Blood Urea Nitrogen 10 mg/dL (7-17); Calcium 9.9 mg/dL (8.4-10.2); Carbon Dioxide 21 mmol/L (22-30); Chloride 104 mmol/L (98-107); Glucose 109 mg/dL (74-99); Potassium 4.2 mmol/L (3.5-5.1); Sodium 137 mmol/L (137-145)
[2018-10-31 01:28] LABS: Appearance,Urine Clear (Clear); Bilirubin,Urine Negative (Negative); Blood,Urine Negative (Negative); Color,Urine Yellow; Glucose,Urine (UA) Negative (Negative); Ketones,Urine 1+ (Negative); Leukocyte Esterase,Urine Negative (Negative); Nitrite,Urine Negative (Negative); Protein,Urine Negative (Negative); Specific Gravity,Urine 1.012 (1.001-1.035); Urobilinogen,Urine <2.0 mg/dL (<2.0)
[2018-10-31 01:53] VITALS: BP 106/70; PULSE 80; RESP 18
== END 2018-10-31 01:52 | disposition home or self-care (01) ==
LOC: EC 23:14
DX: O20.9 Hemorrhage in early pregnancy, unspecified (principal); Z3A.01 Less than 8 weeks gestation of pregnancy; Z91.040 Latex allergy status; Z91.048 Other nonmedicinal substance allergy status; Z88.8 Allergy status to other drugs, medicaments and biological substances
CPT/HCPCS: 36415; 76801; 80048; 81003; 81025; 84702; 85025; 86900; 86901; 99284

== ENCOUNTER → 2019-03-11 | Outpatient (CLI) | payer BC, OTHER ==
[2019-03-11 11:01] LABS: HCT 40.3 % (34.0-46.0); HGB 12.8 gm/dL (11.4-16.0); MCH 29.6 pg (25.0-35.0); MCHC 31.7 g/dL (31.0-37.0); MCV 93.5 fL (80.0-100.0); Mean Platelet Volume 7.4; Platelet Count 235 k/uL (150-450); RBC 4.31 m/uL (3.80-5.40)
== END | disposition home or self-care (01) ==
LOC: LABWHC1 09:17
PROVIDERS: ATTEND Obstetrics & Gynecology
DX: Z34.82 Encounter for supervision of other normal pregnancy, second trimester (principal); Z3A.00 Weeks of gestation of pregnancy not specified
CPT/HCPCS: 36415; 82950; 85027

== ENCOUNTER → 2019-03-18 | Outpatient (CLI) | payer BC, OTHER ==
[2019-03-18 12:43] LABS: Glucose 3 Hour, Gest 70 mg/dL
== END ==
LOC: LABWHC1 08:35
PROVIDERS: ATTEND Obstetrics & Gynecology
DX: O99.810 Abnormal glucose complicating pregnancy (principal); Z3A.00 Weeks of gestation of pregnancy not specified
CPT/HCPCS: 36415; 82951; 82952

== ENCOUNTER 2019-06-08 06:00 | Inpatient (IN) | payer BC, OTHER ==
[2019-06-08] MEDS ORDERED: LIDOCAINE 0.5% (PF) 5 MG/ML (50 ML SDV) SQ PRN (06:34)
[2019-06-08] MEDS ORDERED: TERBUTALINE 1 MG/ML VIAL SQ PRN (06:34)
[2019-06-08] MEDS ORDERED: METHYLERGONOVINE 0.2 MG/ML 1 ML AMP IM PRN (06:34)
[2019-06-08] MEDS ORDERED: OXYTOCIN 10 UNIT/ML 1 ML VIAL IM PRN (06:34)
[2019-06-08] MEDS ORDERED: CARBOPROST TROMETHAMINE 250 MCG/ML 1 ML AMP IM PRN (06:34)
[2019-06-08 06:41] VITALS: BMI 41.7
[2019-06-08] MEDS ORDERED: OXYTOCIN 30 UNITS/500 ML NS 30 UNIT in SALINE 1 500ML.BAG IV SCH (06:45)
[2019-06-08] MEDS: LACTATED RINGERS 1,000 ML IV SCH ×3 (06:45→11:24)
[2019-06-08 06:53] LABS: Basophils % (A) 0 %; Eosinophils # (A) 0.5 k/uL (0-0.7); Eosinophils % (A) 7 %; HCT 39.6 % (34.0-46.0); HGB 13.1 gm/dL (11.4-16.0); Lymphocytes # (A) 1.4 k/uL (1.0-4.8); Lymphocytes % (A) 20 %; MCH 28.9 pg (25.0-35.0); MCV 87.4 fL (80.0-100.0); Mean Platelet Volume 8.3; Monocytes # (A) 0.4 k/uL (0-1.0); Monocytes % (A) 5 %; Neutrophils # (A) 4.7 k/uL (1.3-7.7); Neutrophils % (A) 66 %; Platelet Count 219 k/uL (150-450); RBC 4.54 m/uL (3.80-5.40); RDW 14.8 % (11.5-15.5); WBC 7.1 k/uL (3.8-10.6)
[2019-06-08] MEDS ORDERED: AMPICILLIN 2,000 MG in SODIUM CHLORIDE 0.9% 100 ML IVPB ONE (07:00)
--- NOTE | 2019-06-08 07:23 | P.HPOB ---
History of Present Illness H&P Date: 06/08/19 Chief Complaint: Induction of Labor 29 year old presents at 39 weeks for induction of labor. Her cervix is 4/60/-2. She is not charline. heart tones 150 with moderate variability and accelerations. Review of Systems All systems: negative Constitutional: Denies chills, Denies fever Eyes: denies blurred vision, denies pain Ears, nose, mouth and throat: Denies headache, Denies sore throat Cardiovascular: Denies chest pain, Denies shortness of breath Respiratory: Denies cough Gastrointestinal: Denies abdominal pain, Denies diarrhea, Denies nausea, Denies vomiting Genitourinary: Denies dysuria, Denies hematuria Musculoskeletal: Denies myalgias Integumentary: Denies pruritus, Denies rash Neurological: Denies numbness, Denies weakness Psychiatric: Denies anxiety, Denies depression Endocrine: Denies fatigue, Denies weight change Past Medical History Additional Past Medical History / Comment(s): mitrovalve regurgitation. Obstetric history: First was elective , her second was a vaginal delivery. This is her third and she's had care with me since the first trimester. Blood type is B+, antibodies negative, rubella immune, RPR nonreactive, hepatitis B negative, HIV nonreactive, toxoplasmosis negative. She had diet controlled gestational diabetes. Normal anatomy ultrasound,and normal growth. Last week baby was 7#7oz. GBS positive History of Any Multi-Drug Resistant Organisms: None Reported Additional Past Surgical History / Comment(s): defibrilator insertion and remova l, during highschool Past Anesthesia/Blood Transfusion Reactions: No Reported Reaction Past Psychological History: No Psychological Hx Reported Smoking Status: Never smoker Past Alcohol Use History: None Reported Past Drug Use History: None Reported - Past Family History Father Family Medical History: No Reported History Additional Family Medical History / Comment(s): Heart attack Medications and Allergies Home Medications Medication Instructions Recorded Confirmed Type No Known Home Medications 06/08/19 06/08/19 History Allergies Allergy/AdvReac Type Severity Reaction Status Date / Time adhesive tape Allergy Rash/Hives Verified 06/08/19 06:34 egg Allergy Anaphylaxis Verified 06/08/19 06:34 fluticasone [From Flonase] Allergy Swelling Verified 06/08/19 06:34 Latex, Natural Rubber Allergy Swelling Verified 06/08/19 06:34 Exam Osteopathic Statement: *. No significant issues noted on an osteopathic structural exam other than those noted in the History and Physical/Consult. Vital Signs Temp Pulse Resp BP 06/08/19 06:36 96.4 F L 100 16 130/85 Intake and Output 06/07/19 06/08/19 06/08/19 22:59 06:59 14:59 Other: Weight 103.419 kg Heart: RRR Lungs: CTAB Abdomen: soft, nontender Extremeties: neg tori's Results Result Diagrams: 06/08/19 06:40 Assessment and Plan (1) Normal labor Current Visit: No Status: Resolved Code(s): O80 - ENCOUNTER FOR FULL-TERM UNCOMPLICATED DELIVERY; Z37.9 - OUTCOME OF DELIVERY, UNSPECIFIED SNOMED Code(s): 81995523 Plan: 1. induction of labor with amniotomy and pitocin 2. anticipate normal vaginal delivery
[2019-06-08] MEDS ORDERED: fentaNYL (PF) 50 MCG/ML 5 ML AMP ONE (10:01)
[2019-06-08] MEDS ORDERED: SODIUM CHLORIDE 0.9% 100 ML BAG ONE (10:01)
[2019-06-08] MEDS ORDERED: ROPIVACAINE 5MG/ML 20ML VIAL ONE (10:01)
[2019-06-08] MEDS ORDERED: AMPICILLIN 1,000 MG in SODIUM CHLORIDE 0.9% 50 ML IVPB SCH (11:00)
--- NOTE | 2019-06-08 13:08 | P.PROBDLV ---
Vaginal Delivery Note - . Vaginal Delivery Note: 29 year old presents at 39 weeks 4 days for induction of labor. Her cervix is 4/60/-2. She is not charline. heart tones 150 with moderate variability and accelerations. Pitocin was started and antibiotics for GBS prophylaxis. Amniotomy was performed at 7:06 AM, clear fluid noted. She progressed throughout the day and did get an epidural. Her cervix was completely dilated at 12:48 PM. She pushed, delivered a viable female over intact perineum under epidural anesthesia at 1259. Head delivered OA, anterior shoulder delivered gentle downward guidance followed by posterior shoulder and rest of body. Nose and mouth bulb suctioned, cord clamped and cut, infant placed on mother's abdomen. Apgars 9, 9, weight 7 pounds 1.8 ounces. Placenta delivered spontaneously, intact with three-vessel cord at 1301. Vagina, cervix, perineum inspected. No lacerations noted. Estimated blood loss 200 mL. Mother and baby in stable condition.
[2019-06-08] MEDS ORDERED: HYDROCORTISONE 2.5% RECTAL CREAM 30 GM TUBE RECTAL PRN (13:09)
[2019-06-08] MEDS ORDERED: BENZOCAINE/MENTHOL SPRAY 1 GM/SPRAY AEROSOL TOPICAL PRN (13:09)
[2019-06-08] MEDS ORDERED: LANOLIN CREAM 5 GM TUBE TOPICAL PRN (13:09)
[2019-06-08] MEDS ORDERED: ACETAMINOPHEN TAB 325 MG TAB PO PRN (13:09)
[2019-06-08] MEDS ORDERED: IBUPROFEN 600 MG TAB PO PRN (13:09)
[2019-06-08] MEDS ORDERED: diphenhydrAMINE 50 MG CAP PO PRN (13:09)
[2019-06-08] MEDS ORDERED: ZOLPIDEM 5 MG TAB PO PRN (13:09)
[2019-06-08] MEDS ORDERED: SIMETHICONE 80 MG CHEWABLE PO PRN (13:09)
[2019-06-08] MEDS ORDERED: diphenhydrAMINE 25 MG CAP PO PRN (13:09)
[2019-06-08] MEDS ORDERED: diphenhydrAMINE 50 MG/ML 1 ML VIAL IVP PRN ×2 (13:09)
[2019-06-08] MEDS ORDERED: WITCH HAZEL 1 EACH MED..PAD TOPICAL PRN (13:09)
[2019-06-08] MEDS ORDERED: OXYTOCIN 20 UNITS/1000 ML NS 1,000 ML IV SCH (13:15)
[2019-06-08] MEDS: SENNOSIDES-DOCUSATE SODIUM 1 EACH TAB PO SCH (20:49)
[2019-06-09 00:06] VITALS: RESP 16
--- NOTE | 2019-06-09 08:28 | P.DS ---
Providers Date of admission: 06/08/19 06:21 Expected date of discharge: 06/09/19 Attending physician: Samantha Banerjee Primary care physician: Barber Villarreal - Discharge Diagnosis(es) (1) Normal vaginal delivery Current Visit: No Status: Acute Hospital Course: Pt presented for induction of labor. She underwent a normal vaginal delivery. HEr pp course was uncomplicated. She will be discharged home PPD #1 in stable condition to follow up with me in 6 weeks. Plan - Discharge Summary New Discharge Prescriptions: No Action No Known Home Medications Discharge Medication List No Known Home Medications 06/08/19 [History] Follow up Appointment(s)/Referral(s): Samantha Banerjee DO [Doctor of Osteopathic Medicine] - 6 Weeks Discharge Disposition: HOME SELF-CARE
[2019-06-09 08:46] VITALS: BP 117/66; PULSE 80; TEMP 97.6
[2019-06-09] MEDS: SENNOSIDES-DOCUSATE SODIUM 1 EACH TAB PO SCH (08:47)
== END 2019-06-09 14:05 | disposition home or self-care (01) | DRG 807 ==
LOC: 4FBP 06:21
PROVIDERS: ADMIT Obstetrics & Gynecology; ATTEND Obstetrics & Gynecology
PROC: 10E0XZZ Delivery of Products of Conception, External Approach (ICD-10-PCS; principal; 2019-06-08)
PROC: 10907ZC Drainage of Amniotic Fluid, Therapeutic from Products of Conception, Via Natural or Artificial Opening (ICD-10-PCS; 2019-06-08)
PROC: 3E033VJ Introduction of Other Hormone into Peripheral Vein, Percutaneous Approach (ICD-10-PCS; 2019-06-08)
PROC: 00HU33Z Insertion of Infusion Device into Spinal Canal, Percutaneous Approach (ICD-10-PCS; 2019-06-08)
PROC: 3E0R3BZ Introduction of Anesthetic Agent into Spinal Canal, Percutaneous Approach (ICD-10-PCS; 2019-06-08)
DX: O99.824 Streptococcus B carrier state complicating childbirth (principal); Z37.0 Single live birth; I34.0 Nonrheumatic mitral (valve) insufficiency; O99.42 Diseases of the circulatory system complicating childbirth; Z3A.39 39 weeks gestation of pregnancy; Z86.32 Personal history of gestational diabetes; Z91.012 Allergy to eggs; Z91.040 Latex allergy status; Z88.8 Allergy status to other drugs, medicaments and biological substances; Z91.048 Other nonmedicinal substance allergy status; Z82.49 Family history of ischemic heart disease and other diseases of the circulatory system
CPT/HCPCS: 85025; 86850; 86900; 86901

== ENCOUNTER → 2023-03-13 | Outpatient (CLI) | payer BC, OTHER ==
[2023-03-13 14:04] VITALS: BP 124/89; PULSE 92; TEMP 98.8; BMI 44.1
--- NOTE | 2023-03-13 15:20 | P.HPBAR ---
Bariatric H&P - History & Physicial H&P Date: 03/13/23 History & Physicial: Visit/CC: new patient Patient initial contact: Initial weight: Initial weight in pounds: Height: 5 ft 3 in Initial BMI: Last weight: Current weight: 113.126 kg Current weight in pounds: 249.40 Current BMI: 44.1 [place] body weight (based on NIH guidelines): 52.163 kg Excess body weight loss: The patient is a 33 year-old F who presents for Bariatric Assessment. She has trouble with weight loss despite exercising at [employer]. She was on adipex with initial weight loss and dieting. She did weight watchers. She has 2 children. She had weight gain during . She lost 30 pounds and now regained 50 pounds. She has hives with sun exposure. Her father and grand parents has troubles with weight. Her grandfather due to obesity. She has back pain and broken tail bone. No hip pain. No knee pain. She had heel pain. No stomach cancer. NO esophageal. NO inflammatory bowel disease. No blood clots. Possible food allergies include eggs. She is allergic to many things. Highest weight is at present. She still has her gallbladder and appendix. No other abdominal surgeries. SHe had a heart monitor. No heartburn. She has completed medical supervised weight loss. No family members with weight loss. Friends had the band and now she wants the gastric bypass. Very healthy. Past Medical History Additional Past Medical History / Comment(s): mitrovalve regurgitation. Obstetric history: First was elective , her second was a vaginal delivery. This is her third and she's had care with me since the first trimester. Blood type is B+, antibodies negative, rubella immune, RPR nonreactive, hepatitis B negative, HIV nonreactive, toxoplasmosis negative. She had diet controlled gestational diabetes. Normal a natomy ultrasound,and normal growth. Last week baby was 7#7oz. GBS positive History of Any Multi-Drug Resistant Organisms: None Reported Additional Past Surgical History / Comment(s): defibrilator insertion and removal, during highschool Past Anesthesia/Blood Transfusion Reactions: No Reported Reaction Past Psychological History: No Psychological Hx Reported Smoking Status: Never smoker Past Alcohol Use History: None Reported Past Drug Use History: None Reported - Past Family History Father Family Medical History: No Reported History Additional Family Medical History / Comment(s): Heart attack Surgical - Exam Vital Signs Temp Pulse BP 98.8 F 92 124/89 03/13/23 13:59 03/13/23 13:59 03/13/23 13:59 Bariatric Checklist Checklist: Plan: Checklist: EGD: 1. Hiatal hernia: 2. H. Pylori: HgbA1c: Vitamin D: Smoking: Never smoker Primary care physician referral: Dr. Tinoco Psychiatry clearance: Cardiology clearance: Sleep study: Diet journal: VTE risk score: VTE risk level: Rehab needs at discharge:
== END ==
LOC: BARWHC3 13:32
PROVIDERS: ATTEND Surgery Plastic and Reconstructive Surgery
DX: E66.01 Morbid (severe) obesity due to excess calories (principal); Z68.41 Body mass index [BMI] 40.0-44.9, adult; Z91.048 Other nonmedicinal substance allergy status; Z88.8 Allergy status to other drugs, medicaments and biological substances; Z91.012 Allergy to eggs
CPT/HCPCS: 99202

== ENCOUNTER → 2023-04-22 | Day surgery (SDC) | payer BC, OTHER ==
[2023-04-17 16:06] VITALS: BMI 44.2
[~2023-04-22] MED LIST: LACTATED RINGERS 1,000 ML IV ONE; LACTATED RINGERS 1,000 ML IV SCH; LIDOCAINE 2% INJ 20 MG/ML (2 ML VIAL) ONE; PROPOFOL 10 MG/ML 20 ML VIAL IV ONE
--- NOTE | 2023-04-22 07:32 | P.GSHP ---
History of Present Illness H&P Date: 04/22/23 CHIEF COMPLAINT: GERD HISTORY OF PRESENT ILLNESS: The patient is a 33-year-old female who presents reports gastroesophageal reflux disease. Upper endoscopy was offered for further evaluation and management. PAST MEDICAL HISTORY: Please see list. PAST SURGICAL HISTORY: Please see list. MEDICATIONS: Please see list. ALLERGIES: Please see list. SOCIAL HISTORY: No illicit drug use FAMILY HISTORY: No reports of Crohn disease or ulcerative colitis. REVIEW OF ORGAN SYSTEMS: CONSTITUTIONAL: No reports of fevers or chills. GI: Denies any blood in stools or constipation. PHYSICAL EXAM: VITAL SIGNS: Stable GENERAL: Well-developed and pleasant in no acute distress. HEENT: No scleral icterus. Extraocular movements grossly intact. Moist buccal mucosa. NECK: Supple without lymphadenopathy. CHEST: Unlabored respirations. Equal bilateral excursions. CARDIOVASCULAR: Regular rate and rhythm. Distal 2+ pulses. ABDOMEN: Soft, nondistended. MUSCULOSKELETAL: No clubbing, cyanosis, or edema. ASSESSMENT: 1. Gastroesophageal reflux disease PLAN: 1. Recommend proceeding with an upper endoscopy Past Medical History Additional Past Medical History / Comment(s): mitrovalve regurgitation. History of Any Multi-Drug Resistant Organisms: None Reported Past Surgical History: No Surgical Hx Reported Additional Past Surgical History / Comment(s): Hx. of heart monitor. Past Anesthesia/Blood Transfusion Reactions: No Reported Reaction Smoking Status: Never smoker - Past Family History Father Family Medical History: No Reported History Additional Family Medical History / Comment(s): Heart attack Medications and Allergies Home Medications Medication Instructions Recorded Confirmed Type No Known Home Medications 06/08/19 04/17/23 History Allergies Allergy/AdvReac Type Severity Reaction Status Date / Time adhesive tape Allergy Rash/Hives Verified 04/17/23 15:53 egg Allergy Anaphylaxis Verified 04/17/23 15:53 fluticasone [From Flonase] Allergy Swelling Verified 04/17/23 15:53 Latex, Natural Rubber Allergy Swelling Verified 04/17/23 15:53
[2023-04-22 08:21] VITALS: TEMP 97.8
--- NOTE | 2023-04-22 08:47 | P.PCN ---
Date of Procedure: 04/22/23 Description of Procedure: PREOPERATIVE DIAGNOSIS: Gastroesophageal reflux disease. Morbid obesity. POSTOPERATIVE DIAGNOSIS: Gastroesophageal reflux disease. Morbid obesity. Gastritis. OPERATION: Esophagogastroduodenoscopy with biopsies along antrum and duodenum SURGEON: Roula Kay MD ANESTHESIA: MAC. INDICATIONS: The patient is a 33-year-old female who presents with reflux disease. Benefits and risks of the procedure were described. Informed consent was obtained. DESCRIPTION: The patient was brought into the endoscopy suite and laid in the left lateral decubitus position. An Olympus gastroscope was passed along the posterior oropharynx down to the distal esophagus where the squamocolumnar junction was encountered at 40 cm from the incisors. The stomach was entered and no bile reflux was found. Additional findings are listed below. Biopsies with cold forceps were obtained of the antrum. The first through third portion of the duodenum was examined. Retroflexion of the scope confirmed Hill grade 1 lower esophageal valve. The squamocolumnar junction demonstrated LA grade A erosive esophagitis. The stomach was desufflated. The patient tolerated the procedure well. FINDINGS: Squamocolumnar junction 40 cm from the incisors. Diaphragmatic hiatus at 40 cm. Hill grade 4 lower esophageal valve. LA grade A erosive esophagitis. Biopsies obtained of the duodenum. Chronic gastritis with biopsies obtained. RECOMMENDATIONS: Upper endoscopy as needed. Plan - Discharge Summary Discharge Rx Participant: Yes New Discharge Prescriptions: No Action No Known Home Medications Discharge Medication List No Known Home Medications 06/08/19 [History] Follow up Appointment(s)/Referral(s): Bariatric [place], [place] [NON-STAFF] - 05/08/23 Patient Instructions/Handouts: *Surgery [facility] - (Anesthesia) Discharge Instructions Outpatient Surgery, Gastritis (DC) Discharge Disposition: HOME SELF-CARE
[2023-04-22 08:49] VITALS: BP 116/78; PULSE 70; RESP 16
[2023-04-22 08:53] LABS: HCT 45.3 % (34.0-46.0); HGB 15.2 gm/dL (11.4-16.0); MCH 30.3 pg (25.0-35.0); MCHC 33.6 g/dL (31.0-37.0); Mean Platelet Volume 8.8; Platelet Count 249 k/uL (150-450); RBC 5.03 m/uL (3.80-5.40); RDW 12.6 % (11.5-15.5); WBC 5.1 k/uL (3.8-10.6)
[2023-04-22 09:27] LABS: ALT 29 U/L (4-34); AST 26 U/L (14-36); African American GFR (CKD) >90 (>60 ml/min/1.73 sqM); Albumin 4.3 g/dL (3.5-5.0); Alkaline Phosphatase 100 U/L (38-126); Anion Gap 7 mmol/L; Blood Urea Nitrogen 8 mg/dL (7-17); Carbon Dioxide 26 mmol/L (22-30); Chloride 105 mmol/L (98-107); Glucose 99 mg/dL (74-99); Non-African American GFR(CKD) >90 (>60 ml/min/1.73 sqM); Phosphorus 2.7 mg/dL (2.5-4.5); Potassium 3.9 mmol/L (3.5-5.1); Sodium 138 mmol/L (137-145); Total Bilirubin 0.4 mg/dL (0.2-1.3); Total Protein 7.2 g/dL (6.3-8.2)
[2023-04-22 09:48] LABS: INR 0.9 (<1.2); Partial Thromboplastin Time 22.8 sec (22.0-30.0); Prothrombin Time 9.8 sec (9.0-12.0)
[2023-04-22 16:47] LABS: Prealbumin 23.3 mg/dL (18.0-42.0)
[2023-04-22 17:09] LABS: % Iron Saturation 15.42 (12.00-45.00); Chol/HDL Ratio 4.69 Ratio; Ferritin 80.6 ng/mL (10.0-291.0); Iron 60 UG/DL (50-170); LDL Cholesterol,Calculated 154.8 mg/dL (0.0-131.0); Total Iron Binding Capacity 389 UG/DL (228-460)
[2023-04-23 12:38] LABS: Zinc, Serum 82 ug/dL (60-130)
[2023-04-24 06:28] LABS: Vitamin A 62 ug/dL (38-106)
[2023-04-25 07:36] LABS: Anabasine Urine <2.0 ng/mL (<2.0)
[2023-04-25 10:00] LABS: Vit B1(Thiamine) 66 ug/L (38-122)
== END | disposition home or self-care (01) ==
LOC: ORWHC2ENDO 07:41
PROVIDERS: ATTEND Surgery Plastic and Reconstructive Surgery
DX: K31.9 Disease of stomach and duodenum, unspecified (principal); D72.820 Lymphocytosis (symptomatic); K21.9 Gastro-esophageal reflux disease without esophagitis; E66.01 Morbid (severe) obesity due to excess calories; K29.70 Gastritis, unspecified, without bleeding; Z88.8 Allergy status to other drugs, medicaments and biological substances; Z68.41 Body mass index [BMI] 40.0-44.9, adult
CPT/HCPCS: 81025; 84255; 84134; 88305; 84425; 80061; 80053; 82607; 82728; 82525; 82746; 83540; 83550; 83735; 84100; 84443; 84590; 84630; 85027; 85610; 85730; 82306; 80323; 83970; 83036; 43239; J2704; J2001

== ENCOUNTER → 2023-05-20 | Outpatient (CLI) | payer BC, OTHER ==
[2023-05-20 11:24] VITALS: BMI 43.7
== END ==
LOC: BARWHC3 09:04
PROVIDERS: ATTEND Surgery Plastic and Reconstructive Surgery
DX: E66.01 Morbid (severe) obesity due to excess calories (principal); Z68.41 Body mass index [BMI] 40.0-44.9, adult; Z91.048 Other nonmedicinal substance allergy status; Z91.012 Allergy to eggs; Z91.040 Latex allergy status; Z71.3 Dietary counseling and surveillance
CPT/HCPCS: 97804

== ENCOUNTER → 2023-06-11 | Outpatient (CLI) | payer BC, OTHER ==
[2023-06-11 19:53] LABS: ALT 17 U/L (8-44); AST 21 U/L (13-35); Albumin 4.4 d/dL (3.8-4.9); Albumin/Globulin Ratio 1.76 Ratio (1.60-3.17); Alkaline Phosphatase 81 U/L (41-126); BUN/Creat Ratio 15.29 Ratio (12.00-20.00); Blood Urea Nitrogen 10.7 mg/dL (9.0-27.0); Calcium 9.6 mg/dL (8.7-10.3); Carbon Dioxide 23.4 mmol/L (21.6-31.8); Chloride 104 mmol/L (96-109); Globulin 2.5 d/dL (1.6-3.3); Glucose 79 mg/dL (70-110); Potassium 4.5 mmol/L (3.5-5.5); Sodium 139 mmol/L (135-145); Total Bilirubin 0.3 mg/dL (0.3-1.2); Total Protein 6.9 d/dL (6.2-8.2)
[2023-06-11 23:26] LABS: Basophils # (A) 0.04 X 10*3/uL (0.00-0.10); Basophils % (A) 0.5 %; Eosinophils # (A) 0.21 X 10*3/uL (0.04-0.35); Eosinophils % (A) 2.5 %; HCT 44.7 % (37.2-46.3); HGB 14.7 d/dL (12.0-15.0); Lymphocytes # (A) 1.59 X 10*3/uL (0.90-5.00); MCH 29.5 pg (27.0-32.0); MCHC 32.9 d/dL (32.0-37.0); MCV 89.8 FL (80.0-97.0); Mean Platelet Volume 12.5 FL (9.5-12.2); Monocytes # (A) 0.46 X 10*3/uL (0.20-1.00); Monocytes % (A) 5.5 %; NRBC Per 100 WBC 0 X 10*3/uL (0.00-0.01); Neutrophils # (A) 6.06 X 10*3/uL (1.80-7.70); Neutrophils % (A) 72.3 %; Platelet Count 268 X 10*3/uL (140-440); RBC 4.98 X 10*6/uL (4.10-5.20); RDW 13.1 % (11.5-14.5); WBC 8.38 X 10*3/uL (4.50-10.00)
== END | disposition home or self-care (01) ==
LOC: LABWHC1 13:23
PROVIDERS: ATTEND Surgery Plastic and Reconstructive Surgery
DX: Z01.812 Encounter for preprocedural laboratory examination (principal)
CPT/HCPCS: 36415; 80053; 85025

== ENCOUNTER → 2023-06-19 | Outpatient (CLI) | payer BC, OTHER ==
[2023-06-19 14:04] VITALS: BP 117/79; PULSE 80; TEMP 98.2; BMI 41.8
--- NOTE | 2023-06-19 15:18 | P.BASOAP ---
Subjective Progress Note Date: 06/19/23 Patient comes in with pre-existing allergies. Recommend sleeve. Patient has pre- existing troubles. Recommend food allergy testing prior to surgery. All questions evaluated. Objective - Vital Signs Vital signs: Vital Signs Temp 98.2 F 06/19/23 14:02 Pulse 80 06/19/23 14:02 Resp BP 117/79 06/19/23 14:02 Pulse Ox FiO2 Intake & Output 06/18/23 06/19/23 06/19/23 18:59 06:59 18:59 Weight 107.184 kg Assessment/Plan Plan: Date: 06/19/23 Initial Weight: Initial BMI: Current Weight: 107.184 kg Current BMI: 41.8 Type of Surgery: Total Volume in Band: Previous Volume: Volume Removed: Volume Added: Band Size:
== END ==
LOC: BARWHC3 13:43
PROVIDERS: ATTEND Surgery Plastic and Reconstructive Surgery
DX: Z53.9 Procedure and treatment not carried out, unspecified reason (principal)
CPT/HCPCS: 99211

== ENCOUNTER → 2023-07-31 | Outpatient (CLI) | payer BC, OTHER ==
[2023-07-31 16:05] LABS: ALT 17 U/L (8-44); AST 14 U/L (13-35); Albumin 4.5 d/dL (3.8-4.9); Albumin/Globulin Ratio 1.88 Ratio (1.60-3.17); Alkaline Phosphatase 91 U/L (41-126); BUN/Creat Ratio 21.29 Ratio (12.00-20.00); Blood Urea Nitrogen 14.9 mg/dL (9.0-27.0); Carbon Dioxide 28.4 mmol/L (21.6-31.8); Chloride 103 mmol/L (96-109); Globulin 2.4 d/dL (1.6-3.3); Glucose 90 mg/dL (70-110); Potassium 4.4 mmol/L (3.5-5.5); Sodium 140 mmol/L (135-145); Total Bilirubin 0.3 mg/dL (0.3-1.2); Total Protein 6.9 d/dL (6.2-8.2)
[2023-07-31 16:22] LABS: Basophils # (A) 0.03 X 10*3/uL (0.00-0.10); Basophils % (A) 0.4 %; Eosinophils # (A) 0.15 X 10*3/uL (0.04-0.35); HCT 45.8 % (37.2-46.3); HGB 14.9 d/dL (12.0-15.0); Lymphocytes # (A) 1.56 X 10*3/uL (0.90-5.00); Lymphocytes % (A) 21.3 %; MCH 29.2 pg (27.0-32.0); MCHC 32.5 d/dL (32.0-37.0); MCV 89.8 FL (80.0-97.0); Mean Platelet Volume 11.8 FL (9.5-12.2); Monocytes % (A) 6.8 %; NRBC Per 100 WBC 0 X 10*3/uL (0.00-0.01); Neutrophils # (A) 5.08 X 10*3/uL (1.80-7.70); Neutrophils % (A) 69.4 %; Platelet Count 289 X 10*3/uL (140-440); RDW 12.6 % (11.5-14.5); WBC 7.33 X 10*3/uL (4.50-10.00)
== END | disposition home or self-care (01) ==
LOC: LABPAT 10:51
PROVIDERS: ATTEND Surgery Plastic and Reconstructive Surgery
DX: Z01.812 Encounter for preprocedural laboratory examination (principal)
CPT/HCPCS: 36415; 80053; 85025; 86850; 86900; 86901

== ENCOUNTER 2023-08-05 12:46 | Inpatient (IN) | payer BC, OTHER ==
--- NOTE | 2023-08-05 08:29 | P.GSHP ---
History of Present Illness H&P Date: 08/05/23 CHIEF COMPLAINT: Morbid obesity HISTORY OF PRESENT ILLNESS: Lisette Ly is a 42-year-old female who comes with lifelong morbid obesity. As result of morbid obesity, she has developed , osteoarthritis of the hips and knees. She has completed medical supervised weight loss. She completed medical assessment. She has completed psychological risk assessment. All surgical options were reviewed. She elected for sleeve gastrectomy. At height of 5 feet 3 inches, her ideal body weight is 140 pounds. She comes in 238 pounds. Her body mass index is 42.2 She is 98 pounds overweight. PAST MEDICAL HISTORY: 1. Morbid obesity due to excess calories 2. Body mass index of 42.2 3. Osteoarthritis of the knees. 4. Osteoarthritis of the lower back. PAST SURGICAL HISTORY: See list and reviewed HOME MEDICATIONS: See list and reviewed ALLERGIES: See list and reviewed SOCIAL HISTORY: See list and reviewed FAMILY HISTORY: No family history of ulcerative colitis disease or Crohn's disease. Family history of morbid obesity. No lupus in the family. No reports of stomach or esophageal cancer. REVIEW OF ORGAN SYSTEMS: CONSTITUTIONAL:At height of 5 feet 5 inches, her ideal body weight is 149 pounds. She comes in 307 pounds. Her body mass index is 51.3. She is 158 pounds overweight. HEENT: Denies any active troubles with vision or hearing. ENDOCRINE: Has diabetes. Has hypothyroidism. CARDIOVASCULAR: Past reports of palpitations or heart attacks or chest pain. RESPIRATORY: Has daytime somnolence. GASTROINTESTINAL: Denies any bright red blood per rectum. Has gastroesophageal reflux disease. MUSCULOSKELETAL: Has lower back pain and joint pain. Has osteoarthritis of the knees. NEURO: No headaches. No seizure disorders. PSYCH: Has depression. No suicidal ideation. RHEUMATOLOGIC: No lupus. No rheumatoid arthritis. HEMATOLOGIC: Denies any abnormal bleeding or bruising. No personal history of DVTs. SKIN: Has rash. No skin cancer. PHYSICAL EXAM: VITAL SIGNS: Height 5 foot 3 inches, weight 238 pounds. BMI 42.2 GENERAL: Well-developed in no acute distress. HEENT: No scleral icterus. Extraocular movements grossly intact. Hears conversational speech. No nasal drainage. NECK: Supple without lymphadenopathy. CHEST: Nonlabored respirations with equal bilateral excursions. CARDIOVASCULAR: Regular rate and regular rhythm. Distal 2+ pulses. ABDOMEN: Obese, soft, nontender, nondistended. MUSCULOSKELETAL: No clubbing, cyanosis. NEURO: No focal or lateralizing signs. Cranial nerves 2 through 12 grossly within normal limits. PSYCH: Appropriate affect. Alert and oriented to person, place and time. SKIN: Good skin turgor. Well perfused. ASSESSMENT: 1. Morbid obesity due to excess calories 2. Body mass index of 51.3 3. Osteoarthritis of the knees. 4. Osteoarthritis of the lower back. PLAN: 1. Bariatric options between a sleeve, band and a Luiza-en-Y gastric bypass were reviewed in detail. The patient elected for a sleeve gastrectomy. Robotic assisted approach described. 2. The [place] [facility] Data was also reviewed with benefits and risks as described. 3. An 8 page second-generation bariatric consent form was reviewed in detail including potential of bleeding, infection, leaks, adequate weight loss, nutritional deficiencies which the patient demonstrated understanding of the risks. 4. A 2 week high-protein low caloric 800 kcal diet described to address hepatomegaly. 5. Preoperative labs including complete metabolic panel and CBC with type and screen recommended. 6. DVT prophylaxis per [place] [facility]. 7. Antibiotic prophylaxis. 8. Inpatient hospitalization anticipated for more than 2 nights. 9. All questions and concerns were addressed with the patient. 10. Overall, patient has expressed understanding of bariatric care including postoperative diet and commitment of lifestyle. Patient should benefit from surgical intervention for correction of her morbid obesity. 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 CELIAC DISEASE History of Any Multi-Drug Resistant Organisms: None Reported Past Surgical History: No Surgical Hx Reported Additional Past Surgical History / Comment(s): EGD Past Anesthesia/Blood Transfusion Reactions: No Reported Reaction Additional Past Anesthesia/Blood Transfusion Reaction / Comment(s): no hx blood transfusion Past Psychological History: No Psychological Hx Reported Smoking Status: Never smoker Past Alcohol Use History: None Reported Past Drug Use History: None Reported - Past Family History Father Family Medical History: Coronary Artery Disease (CAD), Myocardial Infarction ([place]) Additional Family Medical History / Comment(s): Heart attack Medications and Allergies Home Medications Medication Instructions Recorded Confirmed Type No Known Home Medications 07/30/23 07/30/23 History Allergies Allergy/AdvReac Type Severity Reaction Status Date / Time adhesive tape Allergy Rash/Hives Verified 07/30/23 10:11 egg Allergy Anaphylaxis Verified 07/30/23 10:11 fluticasone [From Flonase] Allergy Swelling Verified 07/30/23 10:11 Latex, Natural Rubber Allergy Swelling Verified 07/30/23 10:11 wheat Allergy CELIAC Verified 07/30/23 10:11
[~2023-08-05 12:46] MED LIST changes: +ACETAMINOPHEN TAB 500 MG TAB PO PRN; +CHLORHEXIDINE GLUCONATE 15 ML CUP MUCOUS MEM PRN; +ENOXAPARIN 40 MG/0.4 ML SYRINGE SQ PRN; +HEPARIN SODIUM,PORCINE/PF 5,000 UNIT/0.5 ML SYRINGE SQ PRN; +HYDROmorphone 0.5 MG/0.5 ML SYRINGE IVP PRN; -LACTATED RINGERS 1,000 ML IV ONE; -LACTATED RINGERS 1,000 ML IV SCH; +LIDOCAINE 1% (10MG/ML) FOR IV START INTRADERMA PRN; -LIDOCAINE 2% INJ 20 MG/ML (2 ML VIAL) ONE; +METOCLOPRAMIDE 5 MG/ML 2 ML VIAL IVP PRN; +ONDANSETRON 4 MG/2 ML VIAL IVP ONE; +ONDANSETRON 4 MG/2 ML VIAL IVP PRN; +PANTOPRAZOLE 40 MG/10 ML VIAL IVP PRN; -PROPOFOL 10 MG/ML 20 ML VIAL IV ONE; +SCOPOLAMINE 1 MG/72 HR PATCH TRANSDERM STA; +droPERidol 5 MG/2 ML VIAL IVP ONE
[2023-08-05] MEDS: LACTATED RINGERS 1,000 ML IV SCH (13:25)
[2023-08-05] MEDS ORDERED: DEXAMETHASONE SOD PHOSPHATE 4 MG/ML 1 ML VIAL IVP ONE (13:55)
[2023-08-05] MEDS ORDERED: GLYCOPYRROLATE 0.2 MG/ML 2 ML VIAL ONE (13:57)
[2023-08-05] MEDS ORDERED: NEOSTIGMINE 1 MG/ML 10 ML VIAL ONE (13:57)
[2023-08-05] MEDS ORDERED: fentaNYL (PF) 50 MCG/ML 2 ML AMP ONE (13:57)
[2023-08-05] MEDS ORDERED: PHENYLEPHRINE-0.9% NACL SYG 1,000 MCG/10 ML SYRINGE ONE (13:57)
[2023-08-05] MEDS ORDERED: SUCCINYLCHOLINE CHLORIDE 200 MG/10 ML VIAL IV ONE (13:57)
[2023-08-05] MEDS ORDERED: ROCURONIUM 10 MG/ML (5 ML VIAL) IV ONE (13:57)
[2023-08-05] MEDS ORDERED: MIDAZOLAM 2 MG/2 ML VIAL ONE (13:57)
[2023-08-05] MEDS ORDERED: PROPOFOL 10 MG/ML 20 ML VIAL IV ONE (13:57)
[2023-08-05] MEDS ORDERED: HYDROmorphone (PF) 1 MG/ML ONE (13:57)
[2023-08-05] MEDS ORDERED: LIDOCAINE 1% INJ 10MG/ML (20 ML MDV) ONE (13:57)
[2023-08-05] MEDS ORDERED: LIDOCAINE 1%-EPI 1:100,000 50 ML VIAL SQ ONE ×2 (14:28→14:32)
[2023-08-05] MEDS ORDERED: diphenhydrAMINE 50 MG/ML 1 ML VIAL IVP PRN (16:42)
[2023-08-05] MEDS ORDERED: ACETAMINOPHEN IV (For NPO) 1,000 MG in EMPTY BAG 1 BAG IVPB ONE (16:42)
[2023-08-05] MEDS ORDERED: NALOXONE 0.4 MG/ML 1 ML VIAL IV PRN ×2 (16:42→16:45)
[2023-08-05] MEDS ORDERED: SODIUM CHLORIDE 0.9% 2,000 ML IV ONE (16:44)
[2023-08-05] MEDS ORDERED: KETOROLAC 15 MG/ML 1 ML VIAL IVP ONE (16:47)
--- NOTE | 2023-08-05 16:49 | P.OP ---
Date of Procedure: 08/05/23 Description of Procedure: SURGEON: LINDA DEL REAL MD PREOPERATIVE DIAGNOSES: 1. Morbid obesity due to excess calories 2. Body mass index of 40.6 3. Osteoarthritis of the knees. 4. Osteoarthritis of the lower back. 5. Celiac disease POSTOPERATIVE DIAGNOSES: 1. Morbid obesity due to excess calories 2. Body mass index of 40.6 3. Osteoarthritis of the knees. 4. Osteoarthritis of the lower back. 5. Celiac disease OPERATION: 1. Robotic assisted daVinci Xi laparoscopic sleeve gastrectomy with 40-Slovak bougie, multiport. 2. Intraoperative esophagogastroduodenoscopy. ANESTHESIA: Gen. local anesthetic ESTIMATED BLOOD LOSS: 10 mL SPECIMENS REMOVED: Sleeve gastrectomy COMPLICATIONS: None. FINDINGS: 1. Negative intraoperative esophagogastrojejunoscopy leak test. 2. No hepatomegaly and no large hiatus hernia. 3. Total of 6 staplers used including 1 - 60 mm green robot sadie and 5 - 60 mm blue robot loads used to create the gastric sleeve. 4. Sleeve gastrectomy, 27 x 4 cm INDICATIONS: Lisette Ly is a 42-year-old female who comes with lifelong morbid obesity. As result of morbid obesity, she has developed , osteoarthritis of the hips and knees. She has completed medical supervised weight loss. She completed medical assessment. She has completed psychological risk assessment. All surgical options were reviewed. She elected for sleeve gastrectomy. At height of 5 feet 3 inches, her ideal body weight is 140 pounds. She comes in 238 pounds. Her body mass index is 42.2 She is 98 pounds overweight. All surgical options for morbid obesity had been described using the [place] [facility] comorbidity resolution including complication risk score. A second-generation bariatric consent form was described in detail including the possibility of protein malnutrition, leaks, gastric stricture, venous thrombosis, gastroesophageal reflux disease, need for further surgery for which she demonstrated understanding. Benefits and risks of the procedure were described at length. Informed consent was obtained. DESCRIPTION: The patient was brought into the operating room theater. Preoperatively she had received Lovenox subcutaneously for DVT prophylaxis. Additionally she had Peridex oral solution as an oral decontaminant. After general induction, the abdomen was prepped and draped in standard sterile fashion. An Ioban draping was placed along the abdomen. A robotic da Taty Xi system was prepped and primed. At 15 cm from the xiphoid, proposed port sites were marked with indelible marker along the anterior axillary line bilaterally, mid axillary line bilaterally with each ports were marked 10 to 15 cm from each other. The robotic stapler port was marked for the right midclavicular line. A 5 mm 0 degrees laparoscopic trocar entry was performed along the left upper quadrant. The abdomen was insufflated to 15 mmHg pressure was tolerated well. Diagnostic laparoscopy demonstrated no injury to bowel, viscera, or mesentery. No evidence of large hiatus hernia was identified. The liver edge was sharp c onsistent with 2 week low-carb high-protein diet. A 8 mm port was placed along the left upper abdominal wall after exchanging the 5 mm port. A separate 8 mm port was placed along the left lateral abdominal wall. Please note that the ports were placed at least 20 cm away from the target anatomy. Care was taken to check each robotic arms were safely away from collision with the bed or the patient. At the epigastrium, a medium sized Lj liver retractor was placed under direct visualization with the Iron Pet Trainer placed under the right shoulder of the patient. Next, 12-mm robot stapler port was placed along the right upper quadrant. The camera 8-mm port was maintained along the epigastrium. The patient was repositioned in reverse Trendelenburg position at 21-degrees after lowering the bed. The robot was docked along the left side of the patient. Using a grasper for arm 4, a vessel sealer for arm 3, including grasper for arm 1, the robotic system was docked and primed as described. Instruments were interchanged by the assistant auditor for stapler loads. The camera was placed at 30- degrees down. I had sat at the console. The pylorus was identified and 6 cm proximally along the greater curvature of the stomach, the short gastrics were mobilized upwards to the angle of His using a vessel sealer. Hemostasis was excellent during this portion of the procedure. Next, the upper pole of the stomach was adherent to the left keagan, which was gently dissected free using atraumatic grasper. I went to the head of the bed and placed 40-Slovak blunt bougie into the stomach. The bougie was readjusted by the nurse needle maker. Robotic stapler green load 60 mm 1 followed by blue 60 mm x 5 loads were used to create the sleeve. Initial firing was across the antrum of the stomach t owards the angle of His. The staple line was linear without corkscrewing. The space from the angularis incisura of the sleeve was approximately 4 cm. I then went to the head of the bed to perform the intraoperative esophagogastroduodenoscopy leak test. The bougie was withdrawn. The upper pole of the stomach was bathed using normal saline solution. The scope was withdrawn with careful inspection along the staple line for which no leaks were found along the entire length. Additionally,the sleeve was completely hemostatic without any encroachment along the angularis incisura. Its topology was a soft "J". No stricture was encountered upon placement of the scope. The GI tract was desufflated. The patient tolerated this portion of the procedure well. The scope was completely withdrawn. The robot was undocked. I then rescrubbed into case, whereby the irrigation fluid was aspirated from the abdominal cavity. Tisseel fibrin sealant was placed along the entire staple length. Once dried the Lj liver retractor was removed. Attention was now brought to removal of the specimen. The distal end of the sleeve gastrectomy specimen was brought out through the 12 mm port at the left upper quadrant. The specimen was gently removed en total. No contamination had occurred during this process. All instruments and pneumoperitoneum including irrigation fluid was removed from the abdominal cavity. The 12 mm port site was closed using 0-Vicryl and Bossman Lora and irrigated with diluted hydrogen peroxide. The final incisions were closed using subcuticular interrupted suture of 4-0 Monocryl. Exofin was applied to the skin once the skin had been cleansed. OptiFoam dressing was placed along the stomach extraction site. The sleeve specimen was measured and checked also for leaks which none were found. At the end of the procedure, needle, sponge, and instrument count was verified correct by the surgical rn. The patient was taken to the postanesthesia care unit in stable condition. She had tolerated the procedure well. Intraoperative films and findings were reviewed with the patient's family.
[2023-08-05] MEDS ORDERED: TRIMETHOBENZAMIDE 100 MG/ML 2 ML VIAL IM PRN (18:51)
[2023-08-05] MEDS: 0.9% NACL WITH KCL 20 MEQ/L 1,000 ML IV SCH (19:20)
[2023-08-05] MEDS ORDERED: fentaNYL PCA 500 MCG/50 ML BAG IV PRN (20:00)
[2023-08-05] MEDS: HYOSCYAMINE ORAL DROPS 1.875 MG/15 ML BOTTLE PO SCH (20:17)
[2023-08-05] MEDS: SIMETHICONE 80 MG CHEWABLE PO SCH (20:18)
[2023-08-05] MEDS: ONDANSETRON 4 MG/2 ML VIAL IVP SCH (20:30)
[2023-08-05] MEDS: ALBUTEROL NEBULIZED 2.5 MG/3 ML INHALATION SCH (21:09)
[2023-08-05] MEDS: ACETAMINOPHEN IV (For NPO) 1,000 MG in EMPTY BAG 1 BAG IVPB SCH (23:56)
[2023-08-05] MEDS: DEXAMETHASONE SOD PHOSPHATE 4 MG/ML 1 ML VIAL IVP SCH (23:58)
[2023-08-06] MEDS: HYOSCYAMINE ORAL DROPS 1.875 MG/15 ML BOTTLE PO SCH ×3 (00:01→11:06)
[2023-08-06] MEDS: SIMETHICONE 80 MG CHEWABLE PO SCH ×3 (00:01→11:07)
[2023-08-06] MEDS: ONDANSETRON 4 MG/2 ML VIAL IVP SCH ×3 (00:03→11:06)
[2023-08-06] MEDS: ACETAMINOPHEN IV (For NPO) 1,000 MG in EMPTY BAG 1 BAG IVPB SCH ×2 (06:01→11:05)
[2023-08-06] MEDS: DEXAMETHASONE SOD PHOSPHATE 4 MG/ML 1 ML VIAL IVP SCH ×2 (06:02→11:06)
[2023-08-06] MEDS: 0.9% NACL WITH KCL 20 MEQ/L 1,000 ML IV SCH (06:02)
[2023-08-06] MEDS: LACTATED RINGERS 1,000 ML IV SCH (07:48)
[2023-08-06] MEDS ORDERED: 0.9% NACL WITH KCL 20 MEQ/L 1,000 ML IV SCH (08:00)
[2023-08-06] MEDS ORDERED: ENOXAPARIN 40 MG/0.4 ML SYRINGE SQ SCH (09:00)
[2023-08-06 09:14] VITALS: RESP 16
--- NOTE | 2023-08-06 09:30 | FL ---
EXAMINATION TYPE: FL UGI DATE OF EXAM: 08/06/2023 COMPARISON: NONE HISTORY: Postop gastric sleep. TECHNIQUE: A single contrast UGI study is performed. A total of 4 seconds of fluoroscopic time was utilized during procedure and 120 images obtained. Total dose area product (DAP) in uGy*m?, mGy*cm? ( or similar): 5611.67. FINDINGS: The esophagus shows normal motility and emptying into the stomach. No evidence of hiatal hernia or s tricture noted. Postsurgical changes from gastric sleeve. No evidence for obstruction or leak. Contrast easily passes into the proximal duodenum. IMPRESSION: Post surgical changes from gastric sleeve. No evidence for obstruction or leak.
[2023-08-06] MEDS: ALBUTEROL NEBULIZED 2.5 MG/3 ML INHALATION SCH ×3 (09:39→16:41)
[2023-08-06 11:09] LABS: Basophils # (A) 0.01 X 10*3/uL (0.00-0.10); Basophils % (A) 0.1 %; Eosinophils # (A) 0.01 X 10*3/uL (0.04-0.35); Eosinophils % (A) 0.1 %; HCT 40.5 % (37.2-46.3); HGB 13.4 d/dL (12.0-15.0); Lymphocytes # (A) 0.64 X 10*3/uL (0.90-5.00); Lymphocytes % (A) 4.2 %; MCH 29.2 pg (27.0-32.0); MCHC 33.1 d/dL (32.0-37.0); MCV 88.2 FL (80.0-97.0); Mean Platelet Volume 11.9 FL (9.5-12.2); Monocytes # (A) 0.57 X 10*3/uL (0.20-1.00); Monocytes % (A) 3.8 %; NRBC Per 100 WBC 0 X 10*3/uL (0.00-0.01); Neutrophils # (A) 13.85 X 10*3/uL (1.80-7.70); Neutrophils % (A) 91.6 %; Platelet Count 265 X 10*3/uL (140-440); RBC 4.59 X 10*6/uL (4.10-5.20); RDW 12.6 % (11.5-14.5); WBC 15.11 X 10*3/uL (4.50-10.00)
[2023-08-06 11:19] LABS: Blood Urea Nitrogen 8.3 mg/dL (9.0-27.0); Calcium 8.9 mg/dL (8.7-10.3); Carbon Dioxide 21.2 mmol/L (21.6-31.8); Chloride 104 mmol/L (96-109); Magnesium 1.9 mg/dL (1.5-2.4); Phosphorus 2.8 mg/dL (2.4-5.1); Potassium 4.7 mmol/L (3.5-5.5); Sodium 136 mmol/L (135-145)
[2023-08-06 13:41] VITALS: BMI 40.6
--- NOTE | 2023-08-06 15:48 | P.DS ---
Providers Date of admission: 08/05/23 12:46 Expected date of discharge: 08/06/23 Attending physician: Rolua Kay Primary care physician: Stated None Hospital Course: Discharge diagnosis 1. Morbid obesity due to excess calories 2. Body mass index of 40.6 3. Osteoarthritis of the knees. 4. Osteoarthritis of the lower back. 5. Celiac disease Hospital course This is a 33-year-old female with a history of morbid obesity she is status post Robotic assisted daVinci Xi laparoscopic sleeve gastrectomy. Patient tolerated surgery well. She is tolerating diet. Upper GI shows no evidence of leak or obstruction. Her pain is controlled. She has been up and ambulating. She is afebrile. She is stable for discharge. Physician Greensman note has been reviewed by physician. Signing provider agrees with the documented findings, assessment, and plan of care. Patient Condition at Discharge: Stable Plan - Discharge Summary Discharge Rx Participant: No New Discharge Prescriptions: New Simethicone 40 mg/0.6 ml Drops [Mylicon Drops] 40 mg PO PCHS PRN #30 ml PRN Reason: Gas Acetaminophen Tab [Tylenol] 1,000 mg PO Q6HR PRN #30 tablet PRN Reason: Pain bisacodyL [Dulcolax] 5 mg PO DAILY PRN #10 tab PRN Reason: Constipation Omeprazole [PriLOSEC] 40 mg PO DAILY #30 cap Ondansetron Odt [Zofran Odt] 4 mg PO Q8HR PRN #9 tab PRN Reason: Nausea Discharge Medication List Acetaminophen Tab [Tylenol] 1,000 mg PO Q6HR PRN #30 tablet 08/06/23 [Rx] Omeprazole [PriLOSEC] 40 mg PO DAILY #30 cap 08/06/23 [Rx] Ondansetron Odt [Zofran Odt] 4 mg PO Q8HR PRN #9 tab 08/06/23 [Rx] Simethicone 40 mg/0.6 ml Drops [Mylicon Drops] 40 mg PO PCHS PRN #30 ml 08/06/23 [Rx] bisacodyL [Dulcolax] 5 mg PO DAILY PRN #10 tab 08/06/23 [Rx] Follow up Appointment(s)/Ref[facility] [place] [facility] - [facility] Activity/Diet/Wound Care/Special Instructions: Liquid diet only for 2 weeks No lifting over 4 pounds in 4 weeks, May Shower. No soaking in bath tubs for 2 weeks Please notify your surgeon if you develop nausea and vomiting including new onset of abdominal pain. Continue to use incentive spirometry to prevent pneumonias. Please continue to ambulate at home to prevent blood clots in legs. Follow-up at the bariatric center. May shower. Dressings to be discontinued by surgeon in the office. Drink 64 oz of fluid daily. Start protein shakes on . Notify bariatric center for temp over 101.0, increased pain, drainage from incisions. No straws or carbonated beverages. Liquid diet only. Sugar content should be less than 6 g to avoid dumping syndrome. Take MOM for constipation. CRUSH, OPEN, OR CUT TABLETS LARGER THAN A SIZE OF A TIC TAC Discharge Disposition: HOME SELF-CARE
[2023-08-06 15:57] VITALS: BP 119/70; PULSE 68; TEMP 98.3
[2023-08-07] MEDS ORDERED: bisacodyL 5 MG TABLET.DR PO PRN (08:00)
== END 2023-08-06 17:02 | disposition home or self-care (01) | DRG 621 ==
LOC: 2ORMAIN 12:46 → 4SSUR 18:55
PROVIDERS: ADMIT Surgery Plastic and Reconstructive Surgery; ATTEND Surgery Plastic and Reconstructive Surgery
PROC: 0DJ08ZZ Inspection of Upper Intestinal Tract, Via Natural or Artificial Opening Endoscopic (ICD-10-PCS; principal; 2023-08-05 13:50)
PROC: 0DB64Z3 Excision of Stomach, Percutaneous Endoscopic Approach, Vertical (ICD-10-PCS; principal; 2023-08-05 13:50)
PROC: 8E0W4CZ Robotic Assisted Procedure of Trunk Region, Percutaneous Endoscopic Approach (ICD-10-PCS; principal; 2023-08-05 13:50)
DX: E66.01 Morbid (severe) obesity due to excess calories (principal); K90.0 Celiac disease; M16.0 Bilateral primary osteoarthritis of hip; M17.0 Bilateral primary osteoarthritis of knee; Z68.41 Body mass index [BMI] 40.0-44.9, adult; M47.9 Spondylosis, unspecified; Z71.3 Dietary counseling and surveillance; Z88.8 Allergy status to other drugs, medicaments and biological substances; Z91.012 Allergy to eggs; Z91.040 Latex allergy status
CPT/HCPCS: 74240; 80051; 81025; 82310; 82565; 83735; 84100; 84520; 85025; 88307; 94640

== ENCOUNTER → 2023-08-09 | Outpatient (CLI) | payer BC, OTHER ==
--- NOTE | 2023-08-09 10:48 | P.BASOAP ---
Subjective Progress Note Date: 08/09/23 Clinically doing well. No dehydration. No infection. Abdominal binder refitted. Wound care instructions reviewed. Start protein shakes. Follow-up next week. Objective - Vital Signs Vital signs: Intake & Output 08/08/23 08/09/23 08/09/23 18:59 06:59 18:59 Weight 103.555 kg Assessment/Plan Plan: Date: Initial Weight: Initial BMI: Current Weight: 103.555 kg Current BMI: Type of Surgery: Total Volume in Band: Previous Volume: Volume Removed: Volume Added: Band Size:
[2023-08-09 11:01] VITALS: BP 116/80; PULSE 68; RESP 13; TEMP 97.7; BMI 40.4
== END ==
LOC: BARWHC3 09:31
PROVIDERS: ATTEND Surgery Plastic and Reconstructive Surgery
DX: Z53.9 Procedure and treatment not carried out, unspecified reason (principal)
CPT/HCPCS: 99211

== ENCOUNTER → 2023-08-14 | Outpatient (CLI) | payer BC, OTHER ==
[2023-08-14 15:43] VITALS: BP 120/85; PULSE 88; TEMP 97.6; BMI 39.4
--- NOTE | 2023-08-14 15:51 | P.BASOAP ---
Subjective Progress Note Date: 08/14/23 She is happy for weight loss. Protein shakes 3 shakes per day. She needs return to work needed. FU Nv 1st w/ blood work. She lifts over 100 pounds. Recommend at least 6 weeks of recovery due to rigorous nature of her job Objective - Vital Signs Vital signs: Vital Signs Temp 97.6 F 08/14/23 15:34 Pulse 88 08/14/23 15:34 Resp BP 120/85 08/14/23 15:34 Pulse Ox FiO2 Intake & Output 08/13/23 08/14/23 08/14/23 18:59 06:59 18:59 Weight 101.151 kg Assessment/Plan Plan: Date: 08/14/23 Initial Weight: Initial BMI: Current Weight: 101.151 kg Current BMI: 39.4 Type of Surgery: Total Volume in Band: Previous Volume: Volume Removed: Volume Added: Band Size:
== END ==
LOC: BARWHC3 14:36
PROVIDERS: ATTEND Surgery Plastic and Reconstructive Surgery
DX: E66.01 Morbid (severe) obesity due to excess calories (principal); Z71.3 Dietary counseling and surveillance; Z68.39 Body mass index [BMI] 39.0-39.9, adult; Z91.048 Other nonmedicinal substance allergy status; Z91.012 Allergy to eggs; Z88.8 Allergy status to other drugs, medicaments and biological substances; Z91.040 Latex allergy status; Z91.018 Allergy to other foods; Z88.5 Allergy status to narcotic agent
CPT/HCPCS: 97802; 99211

== ENCOUNTER → 2023-09-12 | Outpatient (CLI) | payer BC, OTHER ==
[2023-09-12 13:12] LABS: Partial Thromboplastin Time 23.4 sec (22.0-30.0); Prothrombin Time 11.2 sec (10.0-12.5)
[2023-09-12 16:39] LABS: HCT 45.9 % (37.2-46.3); MCH 28.9 pg (27.0-32.0); MCHC 32.7 g/dL (32.0-37.0); MCV 88.4 FL (80.0-97.0); Mean Platelet Volume 13.1 FL (9.5-12.2); NRBC Per 100 WBC 0 X 10*3/uL (0.00-0.01); Platelet Count 189 X 10*3/uL (140-440); RBC 5.19 X 10*6/uL (4.10-5.20); RDW 13.7 % (11.5-14.5); WBC 3.64 X 10*3/uL (4.50-10.00)
[2023-09-12 16:48] LABS: % Iron Saturation 31.51 (12.00-45.00); ALT 24 U/L (8-44); AST 21 U/L (13-35); Albumin 4.2 g/dL (3.8-4.9); Albumin/Globulin Ratio 1.91 Ratio (1.60-3.17); Alkaline Phosphatase 81 U/L (41-126); BUN/Creat Ratio 8.67 Ratio (12.00-20.00); Blood Urea Nitrogen 5.2 mg/dL (9.0-27.0); Calcium 9.8 mg/dL (8.7-10.3); Carbon Dioxide 25.6 mmol/L (21.6-31.8); Chloride 104 mmol/L (96-109); Chol/HDL Ratio 4.74 Ratio; Globulin 2.2 g/dL (1.6-3.3); Glucose 77 mg/dL (70-110); Iron 98 UG/DL (50-170); LDL Cholesterol,Calculated 109.9 mg/dL (0.0-131.0); Magnesium 1.9 mg/dL (1.5-2.4); Potassium 4.4 mmol/L (3.5-5.5); Sodium 141 mmol/L (135-145); Total Bilirubin 0.3 mg/dL (0.3-1.2); Total Iron Binding Capacity 311 UG/DL (228-460); Total Protein 6.4 g/dL (6.2-8.2)
[2023-09-12 19:09] LABS: Prealbumin 13.8 mg/dL (18.0-42.0)
[2023-09-13 12:55] LABS: Zinc, Serum 76 ug/dL (60-130)
[2023-09-14 07:01] LABS: Vitamin A 23 ug/dL (38-106)
[2023-09-14 07:08] LABS: Vit B1(Thiamine) 40 ug/L (38-122)
== END | disposition home or self-care (01) ==
LOC: LABWHC1 11:26
PROVIDERS: ATTEND Surgery Plastic and Reconstructive Surgery
DX: E66.01 Morbid (severe) obesity due to excess calories (principal); D50.9 Iron deficiency anemia, unspecified; K91.2 Postsurgical malabsorption, not elsewhere classified; E44.0 Moderate protein-calorie malnutrition; E45 Retarded development following protein-calorie malnutrition; E55.9 Vitamin D deficiency, unspecified; K74.1 Hepatic sclerosis; N19 Unspecified kidney failure; T56.894A Toxic effect of other metals, undetermined, initial encounter; K50.90 Crohn's disease, unspecified, without complications
CPT/HCPCS: 36415; 80053; 80061; 82306; 82525; 82607; 82728; 82746; 83036; 83540; 83550; 83735; 83970; 84100; 84134; 84255; 84425; 84443; 84590; 84630; 85027; 85610; 85730

== ENCOUNTER → 2023-11-06 | Outpatient (CLI) | payer BC ==
[2023-11-06 15:03] VITALS: BP 111/70; PULSE 72; TEMP 98; BMI 34.0
--- NOTE | 2023-11-06 15:07 | P.BASOAP ---
Subjective Progress Note Date: 11/06/23 DATE: 11/06/23 CHIEF COMPLAINT: Status post sleeve gastrectomy HISTORY OF PRESENT ILLNESS: Lisette Ly is a 33-year-old female who is status post sleeve gastrectomy, 08/05/2023. She is 3 months postop. Denies gastroesophageal reflux disease. No dysphagia. No abdominal pain. Goal weight is 150 pounds. At height of 5 feet 3 inches, her ideal body weight is 140 pounds. She comes in 192 pounds from 236 pounds, 4 months ago. She has lost 44 pounds in 4 months. Her body mass index is 34.4. Her highest weight is 249 pounds, body mass index of 44.3. Lifetime weight loss 57 pounds. Percent excess lifetime weight loss 53%. She is 52 pounds overweight. PHYSICAL EXAM: VITAL SIGNS: Height 5 foot 3 inches, weight 192 pounds. BMI 34.0 Vital Signs Temp 98 F 11/06/23 14:40 Pulse 72 11/06/23 14:40 Resp BP 111/70 11/06/23 14:40 Pulse Ox FiO2 GENERAL: Well-developed in no acute distress. HEENT: No scleral icterus. Extraocular movements grossly intact. Hears conversational speech. No nasal drainage. NECK: Supple without lymphadenopathy. CHEST: Nonlabored respirations with equal bilateral excursions. CARDIOVASCULAR: Regular rate and regular rhythm. Distal 2+ pulses. ABDOMEN: Obese, soft, nontender, nondistended. MUSCULOSKELETAL: No clubbing, cyanosis. NEURO: No focal or lateralizing signs. Cranial nerves 2 through 12 grossly with in normal limits. PSYCH: Appropriate affect. Alert and oriented to person, place and time. SKIN: Good skin turgor. Well perfused. LABS: Reviewed. Vitamin D and A low. ASSESSMENT: 1. Morbid obesity due to excess calories 2. Body mass index of 51.3 3. Osteoarthritis of the knees. 4. Osteoarthritis of the lower back. 5. Status post sleeve gastrectomy 6. Dietary surveillance and counseling 7. Vitamin D deficiency 8. Aitamin A deficiency PLAN: 1. Goal steps of 10,000 daily. 2. Recommend bariatric labs 3. Protein intake 70 g daily 4. Replacement of vitamin D and vitamin A deficiency Objective - Vital Signs Vital signs: Vital Signs Temp 98 F 11/06/23 14:40 Pulse 72 11/06/23 14:40 Resp BP 111/70 11/06/23 14:40 Pulse Ox FiO2 Intake & Output 11/05/23 11/06/23 11/06/23 18:59 06:59 18:59 Weight 87.09 kg - Labs CBC & Chem 7: 11/06/23 15:46 11/06/23 15:46 Assessment/Plan Plan: Date: 11/06/23 Initial Weight: 113.058 kg Initial BMI: 44.1 Current Weight: 87.09 kg Current BMI: 34.0 Type of Surgery: Total Volume in Band: Previous Volume: Volume Removed: Volume Added: Band Size:
[2023-11-06 18:14] LABS: Partial Thromboplastin Time 23.2 sec (22.0-30.0); Prothrombin Time 10.7 sec (10.0-12.5)
[2023-11-07 01:47] LABS: HGB 14.8 g/dL (12.0-15.0); MCH 29.7 pg (27.0-32.0); MCHC 32.9 g/dL (32.0-37.0); MCV 90.2 FL (80.0-97.0); Mean Platelet Volume 12.8 FL (9.5-12.2); NRBC Per 100 WBC 0 X 10*3/uL (0.00-0.01); Platelet Count 223 X 10*3/uL (140-440); RBC 4.99 X 10*6/uL (4.10-5.20); RDW 13.7 % (11.5-14.5); WBC 4.73 X 10*3/uL (4.50-10.00)
[2023-11-07 02:17] LABS: Prealbumin 18.1 mg/dL (18.0-42.0)
[2023-11-07 02:57] LABS: % Iron Saturation 22.35 (12.00-45.00); ALT 13 U/L (8-44); AST 14 U/L (13-35); Albumin 4.3 g/dL (3.8-4.9); Albumin/Globulin Ratio 1.87 Ratio (1.60-3.17); Alkaline Phosphatase 79 U/L (41-126); BUN/Creat Ratio 13.71 Ratio (12.00-20.00); Blood Urea Nitrogen 9.6 mg/dL (9.0-27.0); Calcium 9.9 mg/dL (8.7-10.3); Carbon Dioxide 25.5 mmol/L (21.6-31.8); Chloride 104 mmol/L (96-109); Chol/HDL Ratio 4.18 Ratio; Globulin 2.3 g/dL (1.6-3.3); Glucose 80 mg/dL (70-110); Iron 76 UG/DL (50-170); LDL Cholesterol,Calculated 134.3 mg/dL (0.0-131.0); Phosphorus 3.7 mg/dL (2.4-5.1); Potassium 4.3 mmol/L (3.5-5.5); Sodium 141 mmol/L (135-145); Total Bilirubin 0.4 mg/dL (0.3-1.2); Total Iron Binding Capacity 340 UG/DL (228-460); Total Protein 6.6 g/dL (6.2-8.2)
[2023-11-07 13:29] LABS: Zinc, Serum 80 ug/dL (60-130)
[2023-11-08 06:30] LABS: Vitamin A 38 ug/dL (38-106)
[2023-11-08 09:42] LABS: Vit B1(Thiamine) 65 ug/L (38-122)
[2023-11-09 20:58] LABS: Selenium 115 mcg/L (63-160)
== END ==
LOC: BARWHC3 13:55
PROVIDERS: ATTEND Surgery Plastic and Reconstructive Surgery
DX: E66.01 Morbid (severe) obesity due to excess calories (principal); E89.1 Postprocedural hypoinsulinemia; D50.8 Other iron deficiency anemias; K90.89 Other intestinal malabsorption; E50.9 Vitamin A deficiency, unspecified; E55.9 Vitamin D deficiency, unspecified; K74.1 Hepatic sclerosis; N19 Unspecified kidney failure; T56.894A Toxic effect of other metals, undetermined, initial encounter; K50.90 Crohn's disease, unspecified, without complications; M17.0 Bilateral primary osteoarthritis of knee; M47.816 Spondylosis without myelopathy or radiculopathy, lumbar region; Z98.84 Bariatric surgery status; Z71.3 Dietary counseling and surveillance; Z68.43 Body mass index [BMI] 50.0-59.9, adult; Z91.048 Other nonmedicinal substance allergy status; Z91.012 Allergy to eggs; Z91.040 Latex allergy status; Z88.5 Allergy status to narcotic agent; Z91.018 Allergy to other foods; Z88.8 Allergy status to other drugs, medicaments and biological substances
CPT/HCPCS: 80053; 80061; 82306; 82525; 82607; 82728; 82746; 83036; 83540; 83550; 83735; 83970; 84100; 84134; 84255; 84425; 84443; 84590; 84630; 85027; 85610; 85730; 97803; 99211

== ENCOUNTER → 2024-02-05 | Outpatient (CLI) | payer BC ==
[2024-02-05 14:39] VITALS: BP 108/75; PULSE 80; TEMP 98; BMI 30.9
--- NOTE | 2024-02-05 14:52 | P.BASOAP ---
Subjective Progress Note Date: 02/05/24 She has lost 70 pounds from 250 pounds. She wants to get down to 140 pounds. No GERD. Needs labs. Loose skin. No dysphagia. She does better with chicken noodles and veggies. She eats chicken ok. So oshe does 10 to 15,000 steps daily and she walks up stairs her age. She is doing very well. Objective - Vital Signs Vital signs: Vital Signs Temp 98.0 F 02/05/24 14:14 Pulse 80 02/05/24 14:14 Resp BP 108/75 02/05/24 14:14 Pulse Ox FiO2 Intake & Output 02/04/24 02/05/24 02/05/24 18:59 06:59 18:59 Weight 79.152 kg Assessment/Plan Plan: Date: 02/05/24 Initial Weight: 113.058 kg Initial BMI: 44.1 Current Weight: 79.152 kg Current BMI: 30.9 Type of Surgery: Total Volume in Band: Previous Volume: Volume Removed: Volume Added: Band Size:
[2024-02-05 16:49] LABS: Partial Thromboplastin Time 22.8 sec (22.0-30.0); Prothrombin Time 10.6 sec (10.0-12.5)
[2024-02-05 18:30] LABS: HCT 44.1 % (37.2-46.3); HGB 14.9 g/dL (12.0-15.0); MCH 31.2 pg (27.0-32.0); MCHC 33.8 g/dL (32.0-37.0); MCV 92.3 FL (80.0-97.0); Mean Platelet Volume 11.1 FL (9.5-12.2); NRBC Per 100 WBC 0 X 10*3/uL (0.00-0.01); Platelet Count 262 X 10*3/uL (140-440); RBC 4.78 X 10*6/uL (4.10-5.20); RDW 12.3 % (11.5-14.5); WBC 4.82 X 10*3/uL (4.50-10.00)
[2024-02-05 18:55] LABS: ALT 14 U/L (8-44); AST 13 U/L (13-35); Albumin 4.7 g/dL (3.8-4.9); Albumin/Globulin Ratio 1.96 Ratio (1.60-3.17); Alkaline Phosphatase 80 U/L (41-126); Blood Urea Nitrogen 7.7 mg/dL (9.0-27.0); Chloride 102 mmol/L (96-109); Chol/HDL Ratio 4.08 Ratio; Globulin 2.4 g/dL (1.6-3.3); Glucose 79 mg/dL (70-110); Iron 93 UG/DL (50-170); LDL Cholesterol,Calculated 151.3 mg/dL (0.0-131.0); Magnesium 2.1 mg/dL (1.5-2.4); Phosphorus 3.7 mg/dL (2.4-5.1); Potassium 4.4 mmol/L (3.5-5.5); Sodium 142 mmol/L (135-145); Total Bilirubin 0.5 mg/dL (0.3-1.2); Total Iron Binding Capacity 337 UG/DL (228-460); Total Protein 7.1 g/dL (6.2-8.2)
[2024-02-06 11:24] LABS: Zinc, Serum 84 ug/dL (60-130)
[2024-02-06 15:37] LABS: Prealbumin 21.1 mg/dL (18.0-42.0)
[2024-02-07 08:17] LABS: Vit B1(Thiamine) 70 ug/L (38-122)
[2024-02-07 10:04] LABS: Vitamin A 42 ug/dL (38-106)
[2024-02-10 07:30] LABS: Selenium 119 mcg/L (63-160)
== END ==
LOC: BARWHC3 13:52
PROVIDERS: ATTEND Surgery Plastic and Reconstructive Surgery
DX: E66.01 Morbid (severe) obesity due to excess calories (principal); D50.8 Other iron deficiency anemias; K90.89 Other intestinal malabsorption; K90.9 Intestinal malabsorption, unspecified; E55.9 Vitamin D deficiency, unspecified; K74.1 Hepatic sclerosis; N19 Unspecified kidney failure; T56.894A Toxic effect of other metals, undetermined, initial encounter; K50.90 Crohn's disease, unspecified, without complications; Z71.3 Dietary counseling and surveillance; Z91.048 Other nonmedicinal substance allergy status; Z91.012 Allergy to eggs; Z91.040 Latex allergy status; Z91.018 Allergy to other foods; Z88.5 Allergy status to narcotic agent; Z88.8 Allergy status to other drugs, medicaments and biological substances; Z68.30 Body mass index [BMI] 30.0-30.9, adult
CPT/HCPCS: 80053; 80061; 82306; 82525; 82607; 82728; 82746; 83036; 83540; 83550; 83735; 83970; 84100; 84134; 84255; 84425; 84443; 84590; 84630; 85027; 85610; 85730; 97803; 99211

== ENCOUNTER → 2024-07-13 | Outpatient (CLI) | payer BC, OTHER ==
[2024-07-13 11:27] LABS: Partial Thromboplastin Time 23.7 sec (22.0-30.0); Prothrombin Time 10.7 sec (10.0-12.5)
[2024-07-13 15:51] LABS: ALT 11 U/L (8-44); AST 13 U/L (13-35); Albumin 4.6 g/dL (3.8-4.9); Alkaline Phosphatase 68 U/L (41-126); BUN/Creat Ratio 11.86 Ratio (12.00-20.00); Blood Urea Nitrogen 8.3 mg/dL (9.0-27.0); Calcium 10.1 mg/dL (8.7-10.3); Carbon Dioxide 22.9 mmol/L (21.6-31.8); Chloride 105 mmol/L (96-109); Chol/HDL Ratio 3.26 Ratio; Globulin 2.3 g/dL (1.6-3.3); Glucose 81 mg/dL (70-110); Iron 94 UG/DL (50-170); LDL Cholesterol,Calculated 121.8 mg/dL (0.0-131.0); Magnesium 2.1 mg/dL (1.5-2.4); Phosphorus 3.8 mg/dL (2.4-5.1); Potassium 4.5 mmol/L (3.5-5.5); Sodium 140 mmol/L (135-145); Total Bilirubin 0.4 mg/dL (0.3-1.2); Total Iron Binding Capacity 356 UG/DL (228-460); Total Protein 6.9 g/dL (6.2-8.2)
[2024-07-13 16:50] LABS: HCT 45.7 % (37.2-46.3); HGB 15.2 g/dL (12.0-15.0); MCH 31.3 pg (27.0-32.0); MCHC 33.3 g/dL (32.0-37.0); MCV 94.2 FL (80.0-97.0); Mean Platelet Volume 12.6 FL (9.5-12.2); NRBC Per 100 WBC 0 X 10*3/uL (0.00-0.01); Platelet Count 241 X 10*3/uL (140-440); RBC 4.85 X 10*6/uL (4.10-5.20); RDW 12.4 % (11.5-14.5); WBC 5.99 X 10*3/uL (4.50-10.00)
[2024-07-14 13:07] LABS: Zinc, Serum 66 ug/dL (60-130)
[2024-07-16 06:14] LABS: Vitamin A 50 ug/dL (38-106)
[2024-07-16 13:26] LABS: Vit B1(Thiamine) 65 ug/L (38-122)
[2024-07-23 22:40] LABS: Selenium 87 mcg/L (63-160)
== END | disposition home or self-care (01) ==
LOC: LABWHC1 10:15
PROVIDERS: ATTEND Surgery Plastic and Reconstructive Surgery
DX: E66.01 Morbid (severe) obesity due to excess calories
CPT/HCPCS: 36415; 80053; 80061; 82306; 82525; 82607; 82728; 82746; 83036; 83540; 83550; 83735; 83970; 84100; 84134; 84255; 84425; 84443; 84590; 84630; 85027; 85610; 85730

== ENCOUNTER → 2024-09-30 | Outpatient (CLI) | payer BC ==
[2024-09-30 14:41] VITALS: BP 121/84; PULSE 93; RESP 16; TEMP 97.8; BMI 27.8
--- NOTE | 2024-09-30 14:45 | P.BASOAP ---
Subjective Progress Note Date: 09/30/24 She continue to lose weight. No GERD. No abdominal pain. MVI gummy. Get labs. Panniculitis. Send nystatin. Has troubles with grooming with clothes. She has pulling along lower back. She looks younger. Objective - Vital Signs Vital signs: Vital Signs Temp 97.8 F 09/30/24 14:37 Pulse 93 09/30/24 14:37 Resp 16 09/30/24 14:37 BP 121/84 09/30/24 14:37 Pulse Ox FiO2 Intake & Output 09/29/24 09/30/24 09/30/24 18:59 06:59 18:59 Weight 71.214 kg Assessment/Plan Plan: Date: 09/30/24 Initial Weight: 113.058 kg Initial BMI: 44.1 Current Weight: 71.214 kg Current BMI: 27.8 Type of Surgery: Total Volume in Band: Previous Volume: Volume Removed: Volume Added: Band Size:
== END ==
LOC: BARWHC3 14:13
PROVIDERS: ATTEND Surgery Plastic and Reconstructive Surgery
DX: E66.01 Morbid (severe) obesity due to excess calories (principal); M79.3 Panniculitis, unspecified; Z91.048 Other nonmedicinal substance allergy status; Z91.012 Allergy to eggs; Z88.8 Allergy status to other drugs, medicaments and biological substances; Z91.040 Latex allergy status; Z91.018 Allergy to other foods; Z88.5 Allergy status to narcotic agent; Z68.27 Body mass index [BMI] 27.0-27.9, adult
CPT/HCPCS: 99211